=== PATIENT | male | born 1970 | race Hispanic/Latino ===

== ENCOUNTER 2018-07-03 18:16 | Emergency (ER) | payer OTHER ==
[2018-07-03 19:09] LABS: Absolute Lymphocytes (CBC) 1.9 K/uL (0.7-4.9); Absolute Monocytes 0.6 K/uL (0.1-1.3); Absolute Neutrophil 3.9 K/uL (1.8-8.0); Basophils % 0.9 % (0-1.3); Eosinophils % 6.1 % (0-4.4); Hematocrit 39.3 % (39.6-49.0); Lymphocytes % 27.9 % (15.3-44.8); MCV 82.5 fL (80-100); MPV 7.8 fL (7.6-11.3); Monocytes % 8.6 % (3.3-12.3); RBC Red Blood Cell Count 4.76 M/uL (4.33-5.43)
[2018-07-03 19:25] LABS: ALT/SGPT 32 U/L (12-78); AST/SGOT 30 U/L (15-37); Albumin 3.5 g/dL (3.4-5.0); Alkaline Phosphatase 111 U/L (45-117); BUN Blood Urea Nitrogen 15 mg/dL (7-18); Bicarbonate 26 mmol/L (21-32); Bilirubin Direct < 0.1 mg/dL (0-0.2); Bilirubin Total 0.4 mg/dL (0.2-1.0); Glucose Level 121 mg/dL (74-106); Magnesium 2.3 mg/dL (1.8-2.4); NT PRO-BNP 47 pg/mL (<125); Potassium 4.2 mmol/L (3.5-5.1); Protein, Total 6.9 g/dL (6.4-8.2); Sodium Level 138 mmol/L (136-145); Troponin (Emerg Dept Use Only) < 0.02 ng/mL (0.0-0.045)
[2018-07-03 19:26] LABS: Protime INR 4.47
--- NOTE | 2018-07-03 19:41 | RAD REPORT ---
EXAM DESCRIPTION: RAD - Chest Single View - 07/03/2018 7:32 pm CLINICAL HISTORY: CHEST PAIN Chest pain. COMPARISON: Chest Single View dated 07/19/2017; Chest Pa And Lat (2 Views) dated 03/08/2017; Chest Sin gle View dated 11/29/2015; Chest Pa And Lat (2 Views) dated 11/28/2015 FINDINGS: Portable technique limits examination quality. The lungs are grossly clear. The heart is normal in size. No displaced fractures.Evidence of previous mitral and aortic valve replacements with sternotomy wires noted. IMPRESSION: No acute intrathoracic process suspected.
--- NOTE | 2018-07-03 20:32 | RAD REPORT ---
EXAM DESCRIPTION: CT - Chest For Pe Angio - 07/03/2018 8:13 pm CLINICAL HISTORY: Chest pain. CHEST PAIN COMPARISON: Chest For Pe Angio dated 11/27/2015 TECHNIQUE: CT angiogram of the pulmonary arteries was performed with MIP. All CT scans are performed using dose optimization technique as appropriate and may include automated exposure control or mA/KV adjustment according to patient size. FINDINGS: No evidence of pulmonary thromboembolism. No acute aortic finding demonstrated. Small nodular density in the right middle lobe measures 9 mm and in the medial left lung base measure s 8 mm, diminished in size since 2016 comparative study but not completely resolved. Benign etiology is likely. No significant pericardial or pleural fluid. No concerning bony finding. IMPRESSION: No evidence of pulmonary thromboembolism. No acute lung findings.
--- NOTE | 2018-07-03 21:08 | ER ---
Nurse's Notes [facility] Name: Ryne Phillips Age: 48 yrs Sex: Male : 1970 Arrival Date: 07/03/2018 Time: 18:19 Bed 20 Private MD: Diagnosis: Chest pain, unspecified Presentation: 07/03 18:22 Presenting complaint: Patient states: right scapular pain and right-sided chest pain aa5 that began 2-3 days ago. Pt also reports SOB. 18:22 Transition of care: patient was not received from another setting of care. Onset of aa5 symptoms was June 2018. Risk Assessment: Do you want to hurt yourself or someone else? Patient reports no desire to harm self or others. Initial Sepsis Screen: Does the patient meet any 2 criteria? No. Patient's initial sepsis screen is negative. Does the patient have a suspected source of infection? No. Patient's initial sepsis screen is negative. Care prior to arrival: None. 18:22 Method Of Arrival: Ambulatory aa5 18:22 Acuity: ABBEY 2 aa5 Triage Assessment: 18:53 General: Appears in no apparent distress. uncomfortable, Behavior is calm, cooperative, hj appropriate for age. Pain: Complains of pain in chest Pain radiates to back. Cardiovascular: Capillary refill < 3 seconds Patient's skin is warm and dry. Historical: - Allergies: 18:22 No Known Allergies; aa5 - Home Meds: 18:22 Digitek Oral [Active]; Lisinopril Oral [Active]; metoprolol tartrate 25 mg Oral tab aa5 once daily [Active]; warfarin 5 mg Oral tab once daily [Active]; aspirin 81 mg Oral chew 1 tab once daily [Active]; - PMHx: 18:22 aortic valve replacement; mitral valve replacement; "heart problems"; aa5 - Immunization history:: Adult Immunizations unknown. - Social history:: Smoking status: Patient/guardian denies using tobacco. - Ebola Screening: : No symptoms or risks identified at this time. Screenin:52 Abuse screen: Denies threats or abuse. Denies injuries from another. Nutritional hj screening: No deficits noted. Tuberculosis screening: No symptoms or risk factors identified. Fall Risk None identified. Assessment: 18:53 Pain: Pain began 2-3 days ago. hj Vital Signs: 18:24 BP 119 / 70; Pulse 65; Resp 18 S; Temp 98.0(O); Pulse Ox 97% on R/A; Weight 72.57 kg aa5 (R); Height 5 ft. 4 in. (162.56 cm) (R); Pain 8/10; 22:00 BP 107 / 56; Pulse 60; Resp 16; Temp 98.1; Pulse Ox 98% on R/A; Pain 0/10; ak1 18:24 Body Mass Index 27.46 (72.57 kg, 162.56 cm) 5 ED Course: 18:19 Patient arrived in ED. mr 18:22 Arm band placed on Patient placed in an exam room, on a stretcher. aa5 18:26 Rylan Irvin PA is PHCP. [facility] 18:26 Irineo Hernández MD is Attending Physician. [facility] 18:30 Triage completed. aa 18:30 EKG completed in triage. Results shown to MD. aa 18:50 Initial lab(s) drawn, by me, sent to lab. Inserted saline lock: 20 gauge in right hj antecubital area, using aseptic technique. Blood collected. Patient maintains SpO2 saturation greater than 95% on room air. 18:52 Brant Patel, RN is Primary Nurse. hj 18:53 Patient has correct armband on for positive identification. Placed in gown. Bed in low hj position. Call light in reach. Side rails up X 1. Adult w/ patient. equipment monitor phototypesetting on. Pulse ox on. NIBP on. Sitter at bedside. 19:32 XRAY Chest (1 view) In Process Unspecified. EDMS 19:53 Notified Nurse Practitioner and/or Physician Lead Java Programmer of a critical lab result(s), ak1 53.5 PT, 4.47 INR. 20:09 Patient moved to UT via wheelchair. nj 20:12 CT completed. Patient tolerated procedure well. Patient moved back from UT. nj 20:13 CT Chest For PE Angio In Process Unspecified. EDMS 21:58 No provider procedures requiring assistance completed. IV discontinued, intact, ak1 bleeding controlled, No redness/swelling at site. Pressure dressing applied. Administered Medications: 21:57 Not Given (Patient Refused): morphine 4 mg IVP once ak1 21:57 Not Given (Patient Refused): Zofran 4 mg PO once ak1 21:57 Drug: Tylenol 500 mg Route: PO; ak1 21:58 Follow up: Response: No adverse reaction; Medication administered at discharge. ak1 Outcome: 21:08 Discharge ordered by . henry 21:59 Discharged to home ambulatory, with family. ak1 21:59 Condition: good 21:59 Discharge instructions given to patient, family, Instructed on discharge instructions, follow up and referral plans. no drinking with medication, no driving heavy equipment, medication usage, Demonstrated understanding of instructions, follow-up care, medications, Prescriptions given X 1. 22:01 Patient left the ED. ak1 Signatures: Dispatcher [employer] EDMS Rylan Irvin PA PA jmm Rivera, Mary mr WhiteMarizol griffin, RN RN aa5 Eileen Talbot RN RN ak1 Brant Patel, THEO RN Casper Larry
--- NOTE | 2018-07-03 21:09 | EDPHYS ---
Physician Documentation [facility] Name: Ryne Phillips Age: 48 yrs Sex: Male : 1970 Arrival Date: 07/03/2018 Time: 18:19 Bed 20 Private MD: ED Physician Irineo Hernández HPI: 07/03 18:40 This 48 yrs old Male presents to ER via Ambulatory with complaints of Chest jmm Pain. 18:40 The patient or guardian reports chest pain that is located primarily in the substernal jmm area. Onset: gradually, 4 day(s) ago. The pain does not radiate. Associated signs and symptoms: Pertinent positives: shortness of breath. The chest pain is described as aching. This is a 48 year old male with a history of aortic valve replacement, mitral valve replacement that presents to the ED with right sided chest pain beginning 4 days ago with radiation to the right shoulder and back and has now moved to the anterior chest wall. Patient also complains of sob. Patient denies history of CAD. . Historical: - Allergies: 18:22 No Known Allergies; aa5 - Home Meds: 18:22 Digitek Oral [Active]; Lisinopril Oral [Active]; metoprolol tartrate 25 mg Oral tab aa5 once daily [Active]; warfarin 5 mg Oral tab once daily [Active]; aspirin 81 mg Oral chew 1 tab once daily [Active]; - PMHx: 18:22 aortic valve replacement; mitral valve replacement; "heart problems"; aa5 - Immunization history:: Adult Immunizations unknown. - Social history:: Smoking status: Patient/guardian denies using tobacco. - Ebola Screening: : No symptoms or risks identified at this time. ROS: 18:40 Constitutional: Negative for fever, chills, and weight loss. jmm 18:40 Neck: Negative for injury, pain, and swelling. 18:40 Abdomen/GI: Negative for abdominal pain, nausea, vomiting, diarrhea, and constipation. 18:40 Cardiovascular: Positive for chest pain. 18:40 Respiratory: Positive for shortness of breath. 18:40 Back: Positive for pain with movement. 18:40 All other systems are negative. Exam: 18:40 Constitutional: This is a well developed, well nourished patient who is awake, alert, jmm and in no acute distress. Head/Face: atraumatic. Eyes: EOMI, no conjunctival erythema appreciated ENT: Moist Mucus Membranes Neck: Trachea midline, Supple Chest/axilla: Normal chest wall appearance and motion. 18:40 Abdomen/GI: Non distended, soft Back: Normal ROM Skin: General appearance color normal MS/ Extremity: Moves all extremities, no obvious deformities appreciated, no edema noted to the lower extremities Neuro: Awake and alert, normal gait Psych: Behavior is normal, Mood is normal, Patient is cooperative and pleasant 18:40 Cardiovascular: Rate: normal, Rhythm: regular, Heart sounds: murmur. Vital Signs: 18:24 BP 119 / 70; Pulse 65; Resp 18 S; Temp 98.0(O); Pulse Ox 97% on R/A; Weight 72.57 kg aa5 (R); Height 5 ft. 4 in. (162.56 cm) (R); Pain 8/10; 22:00 BP 107 / 56; Pulse 60; Resp 16; Temp 98.1; Pulse Ox 98% on R/A; Pain 0/10; ak1 18:24 Body Mass Index 27.46 (72.57 kg, 162.56 cm) aa5 MDM: 18:46 Patient medically screened. [facility] 20:44 Data reviewed: vital signs, nurses notes. [facility] 21:05 ED course: HEART SCORE = 2. CTA chest is negative. Patient is advised to discontinue [facility] coumadin for 24 hours and repeat inr. Patient will follow up with transport tank technician for reevaluation. Quill Picking Machine Operator was used. Patient and understood and agree with the plan of care. Return precautions were given. . 07/03 18:40 Order name: Basic Metabolic Panel [facility] 07/03 18:40 Order name: CBC with Diff [facility] 07/03 18:40 Order name: LFT's [facility] 07/03 18:40 Order name: Magnesium; Complete Time: 19:26 [facility] 07/03 18:40 Order name: NT PRO-BNP; Complete Time: 19:26 [facility] 07/03 18:40 Order name: PT-INR; Complete Time: 19:42 [facility] 07/03 18:40 Order name: Troponin (emerg Dept Use Only); Complete Time: 19:26 [facility] 07/03 18:40 Order name: XRAY Chest (1 view); Complete Time: 19:42 [facility] 07/03 18:42 Order name: Basic Metabolic Panel; Complete Time: 19:26 [facility] 07/03 18:42 Order name: CBC with Automated Diff; Complete Time: 19:19 [facility] 07/03 18:42 Order name: Liver (Hepatic) Function; Complete Time: 19:26 [facility] 07/03 18:46 Order name: D-Dimer; Complete Time: 19:26 [facility] 07/03 19:44 Order name: CT Chest For PE Angio; Complete Time: 20:33 [facility] 07/03 18:40 Order name: EKG; Complete Time: 18:42 [facility] 07/03 18:40 Order name: Cardiac monitoring; Complete Time: 18:55 [facility] 07/03 18:40 Order name: EKG - Nurse/Tech; Complete Time: 18:55 [facility] 07/03 18:40 Order name: IV Saline Lock; Complete Time: 18:55 [facility] 07/03 18:40 Order name: Labs collected and sent; Complete Time: 18:55 [facility] 18:40 Order name: O2 Per Protocol; Complete Time: 18:55 [facility] 07/03 18:40 Order name: O2 Sat Monitoring; Complete Time: 18:55 [facility] Administered Medications: 21:57 Not Given (Patient Refused): morphine 4 mg IVP once ak1 21:57 Not Given (Patient Refused): Zofran 4 mg PO once ak1 21:57 Drug: Tylenol 500 mg Route: PO; ak1 21:58 Follow up: Response: No adverse reaction; Medication administered at discharge. ak1 Disposition: 07/03/18 21:08 Discharged to Home. Impression: Chest pain, unspecified. - Condition is Stable. - Discharge Instructions: Nonspecific Chest Pain. - Prescriptions for Ultracet 37.5- 325 mg Oral Tablet - take 1 tablet by ORAL route every 6 hours - for up to 5 days; do not exceed 8 tablets per day.; 30 tablet. - Medication Reconciliation Form, Thank You Letter, Antibiotic Education, Prescription Opioid Use form. - Follow up: Private Physician; When: 1 - 2 days; Reason: Recheck today's complaints, Continuance of care, Re-evaluation by your physician. - Notes: PLEASE DO NOT TAKE COUMADIN FOR 24 HOURS THEN REPEAT INR LEVELS. PLEASE FOLLOW UP WITH YOUR DATA MIGRATION CONSULTANT IN 1 TO 2 DAYS. Signatures: Dispatcher [employer] [facility] Rylan Irvin PA PA jmm Calderon, Audri, RN RN aa5 Eileen Talbot, RN RN ak1 Corrections: (The following items were deleted from the chart) 22:01 21:08 07/03/2018 21:08 Discharged to Home. Impression: Chest pain, unspecified. ak1 Condition is Stable. Forms are Medication Reconciliation Form, Thank You Letter, Antibiotic Education, Prescription Opioid Use. Follow up: Private Physician; When: 1 - 2 days; Reason: Recheck today's complaints, Continuance of care, Re-evaluation by your physician. henry
[2018-07-03] MEDS ORDERED: ONDANSETRON 4 MG/2 ML VIAL ONE (21:56)
[2018-07-03] MEDS ORDERED: MORPHINE 4 MG/ML SYR ONE (21:57)
[2018-07-03] MEDS ORDERED: ACETAMINOPHEN 500 MG TAB ONE (22:04)
--- NOTE | 2018-07-04 07:06 | EKG ---
Test Date: 2018-07-03 Test Time: 18:37:51 Optical Mechanic Apprentice: YANE MEASUREMENT RESULTS: Intervals: Rate: 64 CA: 164 QRSD: 92 QT: 412 QTc: 425 [place]: P: 71 CA: 164 QRS: 41 T: 87 INTERPRETIVE STATEMENTS: Normal sinus rhythm T wave abnormality, consider lateral ischemia Abnormal ECG Compared to ECG 07/19/2017 11:49:04 No significant changes Electronically Signed On 07-04-18 07:06:08 SLITTER AND REWINDER MACHINE OPERATOR by Farshad Collazo
== END 2018-07-03 22:01 | disposition home or self-care (01) ==
LOC: ER 18:16
DX: R07.9 Chest pain, unspecified (principal); Z79.01 Long term (current) use of anticoagulants; Z79.82 Long term (current) use of aspirin; Z95.2 Presence of prosthetic heart valve
CPT/HCPCS: 36415; 71045; 71275; 80048; 80076; 83735; 83880; 84484; 85025; 85379; 85610; 93005; 99285; J2405; Q9967

== ENCOUNTER 2021-08-10 18:11 | Emergency (ER) | payer OTHER ==
--- OUTSIDE RECORDS SUMMARY | 2021-08-10 18:14 | XMS REPORT | Continuity of Care Document ---
:1970 Author Organization [facility] t Address [facility] [place] [address] Care Team Providers Name Role Phone JAYENOCH Attending Clinician Unavailable Yuli HARRY Attending Clinician Unavailable Shira Aaron Attending Clinician Unavailable MARJAN K.H. Attending Clinician Unavailable Marjan APONTE, K.H. Attending Clinician Doctor Unassigned, Name Attending Clinician Unavailable Shira Aaron Admitting Clinician Unavailable Physician, Primary or Family Admitting Clinician Unavailabl e Payers Payer Name Policy Type Policy Number Effective Date Expiration Date [facility] [id number] 2016 CHOICE 00:00:00 Problems This patient has no known problems. Allergies, Adverse Reactions, Alerts Allergy Allergy Status Severity Reaction(s) Onset Inactive Treating Comm ents Source Name Type Date Date Clinician No Known DA Active U 2014-08 [facility]: [address] No Known DA Active U 2014-08 [facility] 09-01 00:00: [address] NO KNOWN Drug Active [facility] ALLERGIE [facility] Medications Ordered Filled Start Stop Current Ordering Indication Dosage Frequency Signature Comments Components Source Medication Medication Date Date Medication? Clinician (SIG) Name Name Coumadin Coumadin Yes Shaye [address] [facility] Lisinopril Lisinopril Yes Shaye [address] [facility] Metoprolol Metoprolol Yes Shaye [address] [facility] Tartrate Tartrate [facility] with [facility] Digoxin Digoxin Yes Shaye [address] [facility] Procedures This patient has no known procedures. Encounters Start End Encounter Admission Attending Care Care Encounter Source Date/Time Date/Time Type Type Clinicians Facility Department ID 2021-04-27 2021-04-27 [id number] 2021-04-20 2021-04-20 [facility] [id number] [facility] 2021-01-06 2021-01-[address] [facility] [id number] [facility] 08:00:00 08:00:00 [facility] 2020-12-20 2020-12-20 [facility] [id number] [facility] 16:10:00 16:10:00 [facility] 2020-11-22 2020-11-22 [facility] [id number] [facility] 17:50:00 17:50:00 [facility] 2020-11-17 2020-11-17 [facility] [id number] 2020-10-26 2020-10-26 [facility] [id number] [facility] 2020-09-01 2020-09-01 Outpatient Agnieszka, MELVAWU SURG [id number] [facility] 15:00:00 15:00:[id number] [facility] 2020-08-302020-08-30 Outpatient Pepper, HCAWU SURG [id number] [facility] 15:00:00 15:00:[id number] [facility] 2020-07-25 2020-07-25 Outpatient Pepper, HCAWU NUCM [id number] [facility] 09:30:00 09:30:[id number] [facility] 2020-02-11 2020-02-[address] [facility] [id number] [facility] 15:30:00 15:30:00 SENDDOLORES patino [facility] 2019-11-05 2019-11-05 Outpatient Pepper, HCAWU SUGL [id number] [facility] 08:00:00 08:00:[id number] [facility] 2019-11-03 2019-11-03 Outpatient Pepper, HCAWU HCAWU [id number] [facility] 14:15:00 14:15:[id number] [facility] 2019-10-30 2019-10-30 Outpatient Agnieszka, HCAWU SUGL [id number] [facility] 09:00:00 09:00:[id number] [facility] 2019-10-07 2019-10-07 [facility] [id number] 16:20:00 16:20:00 [facility] 2019-10-06 2019-10-06 Telephone Marjan [facility] [id number] 00:00:00 00:00:00 Senddolores Gonzalez [id number] [place] [id number] Johnny [id number] [address] 2019-10-01 2019-10-01 Orders Doctor JUAN [id number] 00:00:00 00:00:00 Only Unassigned, REGLA [id number] [place] [facility] [id number] 2019-09-03 2019-09-03 [facility] [id number] 16:00:00 16:00:[address] [facility] Results Test Description Test Time Test Comments Results Result Comments Source BASIC METABOLIC PANEL 2020-08-30 07:47:00 Test Item Value Reference Range Interpretation Comme nts SODIUM (test code = NA) 138 MMOL/L 137-145 N POTASSIUM (test code = K) 4.3 MMOL/L 3.5-5.1 N CHLORIDE (test code = CL) 102 MMOL/L 98-107 N CARBON DIOXIDE (test code = CO2) 29 MMOL/L 22-30 N GLUCOSE (test code = GLU) 99 MG/DL 74-106 N BLOOD UREA NITROGEN (test code = 16 MG/DL 9-20 N BUN) GLOMERULAR FILTRATION RATE (test > 60 Reporting units: ml/min/1.73 code = GFR) m2 (Modified M DRD Formula)Referen ce Range: > or = 60 ml/min/1.7 3 m2 CREATININE (test code = CREAT) 0.70 MG/DL 0.66-1.25 N CALCIUM (test code = CA) 8.5 MG/DL 8.4-10.2 N [id number] 07:47:00 Test Item Value Reference Range Interpretation Comments MAGNESIUM (test code = MAG) 2.0 MG/DL 1.6-2.3 N BASIC METABOLIC [id number] 07:46:00 Test Item Value Reference Range Interpretation Comments SODIUM (test code = 138 MMOL/L 137-145 N NA) POTASSIUM (test code = 4.3 MMOL/L 3.5-5.1 N K) CHLORIDE (test code = 102 MMOL/L 98-107 N CL) CARBON DIOXIDE (test 29 MMOL/L 22-30 N code = CO2) GLUCOSE (test code = MG/DL 74-106 GLU) BLOOD UREA NITROGEN 16 MG/DL 9-20 N (test code = BUN) GLOMERULAR FILTRATION > 60 Report ing units: RATE (test code = GFR) ml/mi n/1.73 m2 (Modified MDRD Formula)Referen ce Range: > or = 6 0 ml/min/1.73 m2 CREATININE (test code 0.70 MG/DL 0.66-1.25 N = CREAT) CALCIUM (test code = MG/DL 8.7-9.7 CA) [id number] 07:46:00 Test Item Value Reference Range Interpretation Comments MAGNESIUM (test code = MAG) MG/DL 1.6-2.3 BASIC METABOLIC [id number] 07:43:00 Test Item Value Reference Range Interpretation Comments SODIUM (test code = NA) 138 MMOL/L 137-145 N POTASSIUM (test code = K) 4.3 MMOL/L 3.5-5.1 N CHLORIDE (test code = CL) 102 MMOL/L 98-107 N CARBON DIOXIDE (test code = CO2) MMOL/L 22-30 GLUCOSE (test code = GLU) MG/DL 74-106 BLOOD UREA NITROGEN (test code = MG/DL 9-20 BUN) GLOMERULAR FILTRATION RATE (test code = GFR) CREATININE (test code = CREAT) MG/DL 0.66-1.25 CALCIUM (test code = CA) MG/DL 8.7-9.7 [id number] 07:43:00 Test Item Value Reference Range Interpretation Comments MAGNESIUM (test code = MAG) MG/DL 1.6-2.3 PROTHROMBIN [id number] 07:09:00 Test Item Value Reference Range Interpretation Comments PROTHROMBIN TIME 22.1 SECONDS 9.4-12.5 H PATIENT (test code = PTP) INTERNATIONAL NORMAL 2.0 The INR is to be RATIO (test code = used only for INR) monitoring oral anticoagulantth erap y. INDICATION I NR VALUE ---- ---- ---- -------1. Prophylaxis, de ep venous thrombos is, including hig h risk surgery. 2.0 - 3.0 2. Prophylaxis, de ep venous thrombos is, hip surgery, treatment for d eep venous thrombosis or pulmonary prevention of systemic emboli sm in patients wit h valvular heart disease, atrial fibrillation, tissue heart va lve, or acute myocar dial infarction. 2.0 - 3 .0 3. Mechanical prosthesis hear t valves, recurrent syste van embolism. 3.0 - 4.5 PTT [id number] 07:09:00 Test Item Value Reference Range Interpretation Comments PTT ACTIVATED (test code = APTT) 44.2 SECONDS 25.1-36.5 H CBC W/AUTO [id number] 06:56:00 Test Item Value Reference Range Interpretation Comments WHITE BLOOD CELL (test code = 6.8 K/MM3 3.8-9.8 N WBC) RED BLOOD CELL (test code = 5.43 M/MM3 3.95-5.67 N RBC) HEMOGLOBIN (test code = HGB) 15.1 G/DL 12.4-16.7 N HEMATOCRIT (test code = HCT) 46.5 % 35.9-49.5 N MEAN CELL VOLUME (test code = 86 fL 81.7-96.1 N MCV) MEAN CELL HGB (test code = MCH) 27.8 pg 27.6-33.2 N MEAN CELL HGB CONCETRATION 32.5 % 32.9-35.5 L (test code = MCHC) RED CELL DISTRIBUTION WIDTH 13.7 % 12.1-15.2 N (test code = RDW) PLATELET COUNT (test code = 306 K/MM3 129-368 N PLT) MEAN PLATELET VOLUME (test code 9.7 fl 7.4-10.4 N = MPV) NEUTROPHIL % (test code = NT%) 57.2 % 43-75 N IMMATURE GRANULOCYTE % (test 0.4 % 0.0-2.0 N code = IG%) LYMPHOCYTE % (test code = LY%) 28.3 % 14-44 N MONOCYTE % (test code = MO%) 8.9 % 4-13 N EOSINOPHIL % (test code = EO%) 4.3 % 0-6 N BASOPHIL % (test code = BA%) 0.9 % 0-2 N NUCLEATED RBC % (test code = 0.0 % 0-1.0 N NRBC%) NEUTROPHIL # (test code = NT#) 3.86 K/mm3 2.0-7.6 N IMMATURE GRANULOCYTE # (test 0.03 x10 3/uL 0-0.03 N code = IG#) LYMPHOCYTE # (test code = LY#) 1.91 K/mm3 1.0-3.8 N MONOCYTE # (test code = MO#) 0.60 K/mm3 0.1-0.8 N EOSINOPHIL # (test code = EO#) 0.29 K/mm3 0.0-0.2 H BASOPHIL # (test code = BA#) 0.06 K/mm3 0.0-0.2 N NUCLEATED RBC # (test code = 0.00 K/mm3 0.0-0.1 N NRBC#) COVID 19 Asymptomatic IH [id number] 15:10:00 Test Item Value Reference Range Interpretation Comments COVID 19 NEGATIVE Negative "Negative resul ts from Asymptomatic IH AG patients with symptom (test code = onset beyondfiv e days, COVNONPUIAG) should be kathy brit as presumptive, andconfirmation with a molecular assay , if necessary forpa tient management may be performed. Nega tive results do notr ule out COVID-19 and sh ould not be used as the sole basisfor treatm ent or patient managem ent decisions, includinginfect ion control decisio ns. Negative result s should beconsidered in the context of a pa tients recent exposure s,history, and the presenc e of clinical signs and symptomsconsist ent with COVID-19.This t est detects both vi able andnon-viable S ARS-CoV and SARS CoV-2. Test performance dep endson the amount of virus (antigen) in the sample." - NM MYOCRD SPECT R/S [id number] 07:39:00 [facility] 1970 Sex: M Patient Name: Cecy PATTON Unit No: [id number] EXAMS: CPT CODE: [id number] NM MYOCRD SPECT R/S MULT [id number] INDICATION: Precordial chest pain. The patient underwent myocardial perfusion imaging utilizing IV injection of 10.6 mCi Tc99M Cardiolite at rest and IV injection of 30.8 mCi [id number] Cardiolite at peak stress. SPECT imaging was obtained at rest and stress. Gated SPECT imaging was obtained at stress. Jasvir treadmill protocol was utilized for stress. FINDINGS: There is no significant perfusion defect. CONCLUSIONS: 1. NORMAL EXERCISE TECHNETIUM 99 CARDIOLITE SHOWING NORMAL PERFUSION. 2. GATED PERFUSION IMAGING SHOWS NORMAL LEFT VENTRICULAR SIZE AND SYSTOLIC FUNCTION WITH NORMAL WALL MOTION. END-DIASTOLIC VOLUME IS 89 mL, END-SYSTOLIC VOLUME IS 27 mL, AND THE EJECTION FRACTION IS 70 %. at 0739 Reported and signed by: Merritt Aaron M.D. CC: Merritt Aaron Technologist: Brant BONNER; Ariel Juarez, RT(N); ... Transcrpt Date/Tm/Trnsp: 07/29/2020 (0739) JúniorP Orig Print D/T: S: 07/29/2020 (0743) [facility] NAME: ALAN AGUIRRECecy [id number] PHYS: [place] [address] : 1970 AGE: 50 SEX: M LOC: Z.NUC PHONE #: [phone] EXAM DATE: 07/25/2020 STATUS: DEP CLI FAX #: [phone] RADIOLOGY NO: PAGE 1 Signed Report
[2021-08-10] MEDS ORDERED: OXYMETAZOLINE HCL 0.05% 15ML NAS ONE (19:22)
[2021-08-10 20:07] LABS: Absolute Lymphocytes (CBC) 2.1 K/uL (0.7-4.9); Basophils % 1.4 % (0-1.3); Hematocrit 41.3 % (39.6-49.0); Lymphocytes % 26.8 % (15.3-44.8); MPV 7.8 fL (7.6-11.3); RBC Red Blood Cell Count 4.95 M/uL (4.33-5.43)
[2021-08-10 20:13] LABS: Protime INR 3.94
[2021-08-10 20:37] LABS: BUN Blood Urea Nitrogen 16 mg/dL (7-18); Bicarbonate 23 mmol/L (21-32); Glucose Level 110 mg/dL (74-106); Potassium 4.2 mmol/L (3.5-5.1); Sodium Level 139 mmol/L (136-145)
--- NOTE | 2021-08-10 21:50 | EDPHYS ---
Physician Documentation [facility] Name: Ryne Phillips Age: 51 yrs Sex: Male : 1970 Arrival Date: 08/10/2021 Time: 18:27 Bed 15 Private MD: ED Physician Irineo Hernández HPI: 08/10 19:50 This 51 yrs old Male presents to ER via Ambulatory with complaints of Nose rn Bleed. 19:50 The patient presents with a nose bleed, occurred from an unknown cause. Onset: The rn symptoms/episode began/occurred 2 hour(s) ago. Modifying factors: The symptoms are alleviated by pressure, the symptoms are aggravated by blowing nose. Associated signs and symptoms: Loss of consciousness: the patient experienced no loss of consciousness, Pertinent positives: bleeding, Pertinent negatives: chest pain, fever, shortness of breath. Severity of symptoms: At their worst the symptoms were mild in the emergency department the symptoms are unchanged. The patient has experienced a previous episode. The patient has been recently seen by a physician:. Patient reports was at work, denies trauma, began bleeding out of right nare. Denies shortness of breath. Helps with pressure but does not stop. States takes warfarin for 2 valve replacements in the past and was told recently that his level was low and to increase his warfarin. No other acute problems.. Historical: - Allergies: 19:06 No Known Drug Allergies; eo2 - Home Meds: 19:06 warfarin 5 mg Oral tab once daily [Active]; metoprolol tartrate 25 mg Oral tab once eo2 daily [Active]; lisinopril 5 mg Oral tab 1 tab once daily [Active]; - PMHx: 19:06 "heart problems"; aortic valve replacement; mitral valve replacement; eo2 - Immunization history:: Adult Immunizations up to date, Client reports receiving the 2nd dose of the Covid vaccine. - Social history:: Smoking status: Patient denies any tobacco usage or history of. - Family history:: not pertinent. - Hospitalizations: : No recent hospitalization is reported. ROS: 19:50 Constitutional: Negative for fever, chills, and weight loss, ENT: Positive for rn epistaxis Cardiovascular: Negative for chest pain, palpitations, and edema, Respiratory: Negative for shortness of breath, cough, wheezing, and pleuritic chest pain, Abdomen/GI: Negative for abdominal pain, nausea, vomiting, diarrhea, and constipation, Neuro: Negative for headache, weakness, numbness, tingling, and seizure. Exam: 19:50 Constitutional: This is a well developed, well nourished patient who is awake, alert, rn and in no acute distress. Head/Face: Normocephalic, atraumatic. ENT: Slow bleeding from right nare Cardiovascular: Regular rate and rhythm. No pulse deficits. Respiratory: No increased work of breathing, no retractions or nasal flaring. Skin: Warm, dry with normal turgor. Normal color with no rashes, no lesions, and no evidence of cellulitis. Neuro: Awake and alert, GCS 15 Vital Signs: 19:01 BP 133 / 79; Pulse 69; Resp 15; Pulse Ox 98% ; Weight 77.11 kg; Height 5 ft. 3 in. eo2 (160.02 cm); Pain 5/10; 20:28 BP 117 / 74; Pulse 63; Resp 20; Pulse Ox 99% on R/A; mk 21:40 BP 116 / 85; Pulse 62; Resp 18; Pulse Ox 98% on R/A; mk 19:01 Body Mass Index 30.11 (77.11 kg, 160.02 cm) eo2 Delmar Coma Score: 20:28 Eye Response: spontaneous(4). Verbal Response: oriented(5). Motor Response: obeys mk commands(6). Total: 15. MDM: 19:05 Patient medically screened. rn 20:55 ED course: INR 3.94. Bleeding initially stopped after Afrin and pressure but patient rn started to drink Sprite and bleeding started again. Reapplied pressure and bleeding is stopped, does not feel like it is tracking backwards and patient is sitting upright sleeping comfortably. It will be better for patient if we can do this without vitamin K administration, told him if bleeds again will have to put a Rhino Rocket. We will continue to observe.. 21:48 Differential diagnosis: spontaneous epistaxis. Data reviewed: vital signs, nurses rn notes, lab test result(s), and as a result, I will discharge patient. Counseling: I had a detailed discussion with the patient and/or guardian regarding: the historical points, exam findings, and any diagnostic results supporting the discharge/admit diagnosis, lab results, the need for outpatient follow up, to return to the emergency department if symptoms worsen or persist or if there are any questions or concerns that arise at home. Response to treatment: the patient's symptoms have resolved after treatment, the patient's condition has returned to base line, the patient is now symptom free, and as a result, I will discharge patient. ED course: Patient observed here has not had any bleeding for about an hour and a half. Has not required further intervention. Will not give vitamin K since bleeding has stopped and stable vitals. H\\T\\H were normal. Recommend that he skips tomorrow's warfarin dose and then resumes at his old 5 mg a day which she has been balanced and within range for years. It turns out that his PCP had increased his warfarin based on a low INR but patient states was in [place] and had not taken it for days prior to blood draw.. 08/10 19:30 Order name: CBC with Diff; Complete Time: 20:33 rn 08/10 19:30 Order name: Basic Metabolic Panel; Complete Time: 20:55 rn 08/10 19:30 Order name: Protime (+inr); Complete Time: 20:33 rn 08/10 19:30 Order name: Ptt, Activated; Complete Time: 20:33 rn 08/10 19:30 Order name: IV Start; Complete Time: 19:57 rn Administered Medications: 19:25 Drug: Oxymetazoline Drops (0.05 %) 1 sprays {Note: given by Edgar HINOJOSA} Route: mk Intranasal; Site: both nares; 22:22 Follow up: Response: No adverse reaction; Marked relief of symptoms 20:38 CANCELLED (NO longer bleedingg): Vitamin K1 (phytonadione) 10 mg IM once rn Disposition Summary: 08/10/21 21:50 Discharge Ordered Location: Home rn Problem: new rn Symptoms: are resolved rn Condition: Stable rn Diagnosis - Epistaxis rn - Supratherapeutic INR rn Followup: rn - With: Private Physician - When: As needed - Reason: Recheck today's complaints, Re-evaluation by your physician Discharge Instructions: - Discharge Summary Sheet rn - Nosebleed, Adult rn - Warfarin Coagulopathy rn - Warfarin Information rn - Vitamin K Foods and Warfarin rn Forms: - Medication Reconciliation Form rn - Thank You Letter rn - 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 josie galindo
--- NOTE | 2021-08-10 21:50 | ER ---
Nurse's Notes [facility] Name: Ryne Phillips Age: 51 yrs Sex: Male : 1970 Arrival Date: 08/10/2021 Time: 18:27 Bed 15 Private MD: Diagnosis: Epistaxis;Supratherapeutic INR Presentation: 08/10 19:01 Chief complaint: Spouse and/or significant other states: nose bleed onset 1 hour [employer], eo2 on coumadin for heart valves, denies fall/injury. Coronavirus screen: Vaccine status: Patient reports receiving the 2nd dose of the covid vaccine. Ebola Screen: No symptoms or risks identified at this time. Initial Sepsis Screen: Does the patient meet any 2 criteria? No. Patient's initial sepsis screen is negative. Does the patient have a suspected source of infection? No. Patient's initial sepsis screen is negative. Risk Assessment: Do you want to hurt yourself or someone else? Patient reports no desire to harm self or others. Onset of symptoms was August 10, 2021. 19:01 Method Of Arrival: Ambulatory eo2 19:01 Acuity: ABBEY 3 eo2 Triage Assessment: 19:06 General: Appears uncomfortable, Behavior is calm, cooperative. eo2 Historical: - Allergies: 19:06 No Known Drug Allergies; eo2 - Home Meds: 19:06 warfarin 5 mg Oral tab once daily [Active]; metoprolol tartrate 25 mg Oral tab once eo2 daily [Active]; lisinopril 5 mg Oral tab 1 tab once daily [Active]; - PMHx: 19:06 "heart problems"; aortic valve replacement; mitral valve replacement; eo2 - Immunization history:: Adult Immunizations up to date, Client reports receiving the 2nd dose of the Covid vaccine. - Social history:: Smoking status: Patient denies any tobacco usage or history of. - Family history:: not pertinent. - Hospitalizations: : No recent hospitalization is reported. Screenin:23 Abuse screen: Denies threats or abuse. Nutritional screening: No deficits noted. mk Tuberculosis screening: No symptoms or risk factors identified. Fall Risk None identified. Assessment: 19:20 General: Appears in no apparent distress. Behavior is calm, cooperative. Pain: Denies mk pain. Neuro: Level of Consciousness is awake, alert, obeys commands, Oriented to person, place, time, situation, Backer Up are equal bilaterally Moves all extremities. Gait is steady, Speech is normal, Facial symmetry appears normal, Pupils are PERRLA. Cardiovascular: Heart tones S1 S2 Capillary refill < 3 seconds fingers toes JVD is absent Patient's skin is warm and dry. Pulses are 2+ in right radial artery, right dorsalis pedis artery, left radial artery and left dorsalis pedis artery Rhythm is regular. Respiratory: Airway is patent Respiratory effort is even, unlabored, Respiratory pattern is regular, symmetrical, Breath sounds are clear. : No signs and/or symptoms were reported regarding the genitourinary system. EENT: Nares with bleeding noted on right on left. Derm: Skin is intact. Musculoskeletal: Range of motion: intact in all extremities. 20:20 Reassessment: Patient and/or family updated on plan of care and expected duration. Pain mk level reassessed. Patient is alert, oriented x 3, equal unlabored respirations, skin warm/dry/pink. bleeding stopped s/p meds and nose pinching. 21:34 Reassessment: No changes from previously documented assessment. Patient and/or family mk updated on plan of care and expected duration. Pain level reassessed. Patient is alert, oriented x 3, equal unlabored respirations, skin warm/dry/pink. 22:22 Reassessment: No changes from previously documented assessment. Patient and/or family mk updated on plan of care and expected duration. Pain level reassessed. Patient is alert, oriented x 3, equal unlabored respirations, skin warm/dry/pink. Patient states feeling better. Patient states symptoms have improved. Vital Signs: 19:01 BP 133 / 79; Pulse 69; Resp 15; Pulse Ox 98% ; Weight 77.11 kg; Height 5 ft. 3 in. eo2 (160.02 cm); Pain 5/10; 20:28 BP 117 / 74; Pulse 63; Resp 20; Pulse Ox 99% on R/A; mk 21:40 BP 116 / 85; Pulse 62; Resp 18; Pulse Ox 98% on R/A; mk 19:01 Body Mass Index 30.11 (77.11 kg, 160.02 cm) eo2 Halsey Coma Score: 20:28 Eye Response: spontaneous(4). Verbal Response: oriented(5). Motor Response: obeys mk commands(6). Total: 15. ED Course: 18:27 Patient arrived in ED. ds1 19:01 Arielle Bermudez, RN is Primary Nurse. eo2 19:05 Irineo Hernández MD is Attending Physician. rn 19:06 Triage completed. eo2 19:11 Report given to Samira VENEGAS. eo2 19:20 Patient has correct armband on for positive identification. Allergy band placed. Placed mk in gown. Bed in low position. Call light in reach. Side rails up X 1. Pulse ox on. NIBP on. 19:40 Inserted saline lock: 18 gauge in right antecubital area, using aseptic technique. mk 19:43 Samira Rosas, RN is Primary Nurse. mk 19:57 CBC with Diff Sent. mk 19:57 Basic Metabolic Panel Sent. mk 19:57 Ptt, Activated Sent. mk 19:57 Protime (+inr) Sent. mk 22:23 Arm band placed on. mk 22:23 medication removal from pyxis. IV discontinued, intact, bleeding controlled, No mk redness/swelling at site. Pressure dressing applied. Administered Medications: 19:25 Drug: Oxymetazoline Drops (0.05 %) 1 sprays {Note: given by Edgar APONTE.} Route: mk Intranasal; Site: both nares; 22:22 Follow up: Response: No adverse reaction; Marked relief of symptoms mk 20:38 CANCELLED (NO longer bleedingg): Vitamin K1 (phytonadione) 10 mg IM once rn Outcome: 21:50 Discharge ordered by . rn 22:23 Discharged to home with family. mk 22:23 Condition: stable 22:23 Discharge instructions given to patient, family. 22:24 Patient left the ED. mk Signatures: Anel Burch ds1 Irineo Hernández MD MD rn Owoade, Eunice, RN RN eo2 Samira Rosas RN RN mk
[2021-08-10 22:31] VITALS: BP 116/85; O2SAT 98
== END 2021-08-10 22:24 | disposition home or self-care (01) ==
LOC: ER 18:11
DX: R04.0 Epistaxis (principal); R79.1 Abnormal coagulation profile; Z79.01 Long term (current) use of anticoagulants; Z95.4 Presence of other heart-valve replacement
CPT/HCPCS: 36415; 80048; 85025; 85610; 85730; 99284

== ENCOUNTER → 2023-08-18 | Emergency (ER) | payer OTHER ==
[~2023-08-18] MED LIST: BENZONATATE 100 MG CAP PO ONE
--- OUTSIDE RECORDS SUMMARY | 2023-08-18 02:30 | XMS REPORT | Continuity of Care Document ---
Author Name Unknown Address [address] [facility] [address] [place] [address] [facility] thconnect Address [address] [facility] [address] [place] [address] Care Team Providers Care Tower Technician Name Role Phone John Gilda BOWMAN Primary Care Physician [phone] [place] Attending Clinician Unavailable Shaye Perdomo Attending Clinician Unavailable Doctor Unassigned, [place] Attending Clinician U WILL Sheffield Attending Clinician Unavail able DEVIN HARRY Attending Clinician Unavailable ELYSE PHILLIP K.HHelder Attending Clinician Unavailjazlyn Phillip MD, Elyse K.H. Attending Clinician [phone] Payers Payer Name Policy Type Policy Number Effective Date Expirati on Date Source [place] [id number] [facility] ([facility]) C1 [id number] 2019 00:00:00 [facility] ([facility]) C1 [id number] 2019 00:00:00 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 [facility] current use of anticoagul ant Disease Active 09-08 00:00: 00 [facility] S/P mitral valve replacemen t with metallic valve S/P mitral valve replacemen t with metallic valve Disease Active 09-08 00:00: 00 [facility] S/P aortic valve replacemen t with metallic valve S/P aortic valve replacemen t with metallic valve Disease Active 09-08 00:00: 00 [facility] History of rheumatic fever History of rheumatic fever Disease Active 09-08 00:00: 00 [facility] ARRIAGA (dyspnea on exertion) ARRIAGA (dyspnea on exertion) Disease Active 09-08 00:00: 00 [facility] Atypical chest pain Atypical chest pain Disease Active 09-08 00:00: 00 [facility] [id number] 100 H/O aortic valve replacemen t Problem [facility] [id number] Encounter for general adult medical examinatio n with abnormal findings Problem [facility] [id number] Paresthesi a of right leg Problem [facility] [id number] Arm paresthesi a, right Problem [facility] [id number] 109 H/O mitral valve replacemen t Problem [facility] [id number] CVD (cardiovas cular disease) Problem [facility] [id number] Lipid metabolism abnormalit y Problem [facility] [id number] Cough Problem [facility] [id number] Eye muscle twitches Problem [facility] Allergies, Adverse Reactions, Alerts Allergy Name Allergy Type Status Severity Reaction(s) Onset Date Inactive Date Treating Clinician Comments Source NO KNOWN ALLERGIE S Drug Class Active [facility] Social History Social Habit Start Date Stop Date Quantity Comments Source History of Tobacco Use [facility] Sex Assigned At [facility] Alcohol intake 2019-01-09 00:00:00 2019-01-09 00:00:00 .14 /d [facility] Smoking Status Start Date Stop Date Source Former Smoker 2022-01-26 00:00:00 2022-01-26 00:00:00 [facility] Medications Ordered Medication Name Filled Medication Name Start Date Stop Date Current Medication? Ordering Clinician Indication Dosage Frequency Signature (SIG) Comments Components Source warfarin 5 mg tablet 08-31 00:00: 00 Yes [id number] TAKE ONE TABLET BY MOUTH EVERY EVENING [facility] LISINOPRIL 5 mg tablet 2018-08 00:00: 00 Yes [id number] TAKE ONE TABLET BY MOUTH DAILY [facility] DIGOXIN 125 mcg (0.125 mg) tablet 2018-08 00:00: 00 Yes [id number] TAKE ONE TABLET BY MOUTH DAILY [facility] METOPROLOL TARTRATE 25 mg tablet 2018-08 00:00: 00 Yes [id number] TAKE 1/2 TABLET BY MOUTH DAILY [facility] DIGOXIN 125 mcg (0.125 mg) tablet 2018-08 00:00: 00 Yes [id number] TAKE ONE TABLET BY MOUTH DAILY [facility] WARFARIN 5 mg tablet 02-11 00:00: 00 Yes TAKE ONE TABLET BY MOUTH EVERY EVENING [facility] warfarin 5 mg tablet 10-13 00:00: 00 Yes 5mg Take 1 tablet by mouth every evening. 5 mg 4 days/week, 7.5 mg 3 days/week [facility] aspirin 81 mg chewable tablet 04-15 16:45: 22 Yes 81mg Take 81 mg by mouth daily. [facility] fluticasone 50 mcg/actuati on nasal spray 04-11 00:00: 00 Yes [id number] 1{spray } Use 1 [place] in each nostril 2 (two) times daily. [facility] benzonatate (TESSALON PERLES) 100 mg capsule 04-11 00:00: 00 Yes [id number] 100mg Take 1 capsule by mouth 3 (three) times daily. [facility] lisinopril 5 mg tablet 12-05 00:00: 00 Yes [id number] 5mg Take 1 tablet by mouth daily. [facility] Aspirin Adult Low Dose 81 MG Aspirin Adult Low Dose 81 MG No 1{table t} QD Aspirin Adult Low Dose 81 MG Metoprolol Tartrate 25 MG Metoprolol Tartrate 25 MG No 1{table t_with_ food} QD Metoprolol Tartrate 25 MG Coumadin 5 MG Coumadin 5 MG No 1{table t} QD Coumadin 5 MG Aspirin Adult Low Dose 81 MG Aspirin Adult Low Dose 81 MG No 1{table t} QD Aspirin Adult Low Dose 81 MG Metoprolol Tartrate 25 MG Metoprolol Tartrate 25 MG No 1{table t_with_ food} QD Metoprolol Tartrate 25 MG Coumadin 5 MG Coumadin 5 MG No 1{table t} QD Coumadin 5 MG Lisinopril 5 MG Lisinopril 5 MG No 1{table t} QD Lisinopril 5 MG Metoprolol Tartrate 25 MG Metoprolol Tartrate 25 MG No 1{table t_with_ food} QD Metoprolol Tartrate 25 MG Aspirin Adult Low Dose 81 MG Aspirin Adult Low Dose 81 MG No 1{table t} QD Aspirin Adult Low Dose 81 MG Coumadin 5 MG Coumadin 5 MG No 1{table t} QD Coumadin 5 MG Lisinopril 5 MG Lisinopril 5 MG No 1{table t} QD Lisinopril 5 MG Metoprolol Tartrate 25 MG Metoprolol Tartrate 25 MG No 1{table t_with_ food} QD Metoprolol Tartrate 25 MG Aspirin Adult Low Dose 81 MG Aspirin Adult Low Dose 81 MG No 1{table t} QD Aspirin Adult Low Dose 81 MG Coumadin 5 MG Coumadin 5 MG No 1{table t} QD Coumadin 5 MG Metoprolol Tartrate 25 MG Metoprolol Tartrate 25 MG No 1{table t_with_ food} QD Metoprolol Tartrate 25 MG Aspirin Adult Low Dose 81 MG Aspirin Adult Low Dose 81 MG No 1{table t} QD Aspirin Adult Low Dose 81 MG Lisinopril 5 MG Lisinopril 5 MG No 1{table t} QD Lisinopril 5 MG Coumadin 5 MG Coumadin 5 MG No 1{table t} QD Coumadin 5 MG Coumadin 5 MG Coumadin 5 MG No 1{table t} QD Coumadin 5 MG Aspirin Adult Low Dose 81 MG Aspirin Adult Low Dose 81 MG No 1{table t} QD Aspirin Adult Low Dose 81 MG Metoprolol Tartrate 25 MG Metoprolol Tartrate 25 MG No 1{table t_with_ food} QD Metoprolol Tartrate 25 MG Aspirin Adult Low Dose 81 MG Aspirin Adult Low Dose 81 MG No 1{table t} QD Aspirin Adult Low Dose 81 MG Coumadin 5 MG Coumadin 5 MG No 1{table t} QD Coumadin 5 MG Metoprolol Tartrate 25 MG Metoprolol Tartrate 25 MG No 1{table t_with_ food} QD Metoprolol Tartrate 25 MG Aspirin Adult Low Dose 81 MG Aspirin Adult Low Dose 81 MG No 1{table t} QD Aspirin Adult Low Dose 81 MG Coumadin 5 MG Coumadin 5 MG No 1{table t} QD Coumadin 5 MG Metoprolol Tartrate 25 MG Metoprolol Tartrate 25 MG No 1{table t_with_ food} QD Metoprolol Tartrate 25 MG Coumadin Coumadin Yes Shaye Perdomo [address] [facility] Lisinopril Lisinopril Yes Shaye Perdomo [address] [facility] Metoprolol Tartrate Metoprolol Tartrate Yes Shaye Perdomo [address] [facility] Digoxin Digoxin Yes Shaye Perdomo [address] [facility] Vital Signs Vital Name Observation Time Observation Value Comments S ource height 2021-11-02 13:40:00 63 [in_i] Commo n [facility] weight 2021-11-02 13:40:00 167.8 [lb_av] Co mmon [facility] temperature 2021-11-02 13:40:00 98.1 [degF] Com mon [facility] bmi 2021-11-02 13:40:00 29.72 kg/m2 Comm on [facility] oximetry 2021-11-02 13:40:00 98 % Commo n [facility] respiratory rate 2021-11-02 13:40:00 16 /min Common [facility] blood pressure systolic 2021-11-02 13:40:00 126 mm[Hg] [facility] blood pressure diastolic 2021-11-02 13:40:00 78 mm[Hg] Common [facility] height 2021-09-19 16:00:00 63 [in_i] Commo n [facility] weight 2021-09-19 16:00:00 169 [lb_av] Comm on [facility] temperature 2021-09-19 16:00:00 98.0 [degF] Com [facility] bmi 2021-09-19 16:00:00 29.93 kg/m2 Comm on [facility] oximetry 2021-09-19 16:00:00 98 % Commo n [facility] respiratory rate 2021-09-19 16:00:00 16 /min [facility] blood pressure systolic 2021-09-19 16:00:00 135 mm[Hg] Common [facility] blood pressure diastolic 2021-09-19 16:00:00 56 mm[Hg] [facility] height 2021-06-20 14:40:00 63 [in_i] Commo n [facility] weight 2021-06-20 14:40:00 169 [lb_av] Comm on [facility] temperature 2021-06-20 14:40:00 97.5 [degF] Com [facility] bmi 2021-06-20 14:40:00 29.93 kg/m2 Comm on [facility] oximetry 2021-06-20 14:40:00 98 % Commo n [facility] respiratory rate 2021-06-20 14:40:00 16 /min [facility] blood pressure systolic 2021-06-20 14:40:00 118 mm[Hg] [facility] blood pressure diastolic 2021-06-20 14:40:00 70 mm[Hg] Common [facility] height 2021-04-20 08:20:00 63 [in_i] Commo n [facility] weight 2021-04-20 08:20:00 173 [lb_av] Comm on [facility] temperature 2021-04-20 08:20:00 97.8 [degF] Com mon [facility] bmi 2021-04-20 08:20:00 30.64 kg/m2 Comm on [facility] oximetry 2021-04-20 08:20:00 98 % Commo n [facility] respiratory rate 2021-04-20 08:20:00 16 /min [facility] blood pressure systolic 2021-04-20 08:20:00 107 mm[Hg] [facility] blood pressure diastolic 2021-04-20 08:20:00 60 mm[Hg] [facility] Procedures Procedure Date / Time Performed Performing Clinician Source AUTHORIZATION FOR RELEASE OF PHI 2022-01-02 05:01:00 Doctor Unassigned, [place] [facility] Encounters Start Date/Time End Date/Time Encounter Type Admission Type Attending [facility] Care Facility Care Department Encounter ID Source 2023-01-15 11:06:01 Outpatient [place] [facility] [id number] [facility] 2022-12-10 13:41:00 Outpatient [place] [facility] [id number] [facility] 2022-01-24 15:07:01 [facility] [place] [facility] [id number] [facility] 2022-01-11 09:59:00 [facility]patient [facility] [place] [facility] [id number] [facility] 2022-01-09 16:53:01 Outpatient [place] [facility] [id number] [facility] 2022-01-08 12:27:16 Outpatient [place] Cortes ST[facility] [id number] [facility] 2021-11-01 13:03:01 Outpatient [place] Cortes [facility] [id number] [facility] 2021-09-28 13:50:02 Outpatient [place] Cort[place] [facility] [id number] [facility] 2021-09-13 14:11:20 Outpatient [place] Cort[place] [facility] [id number] [facility] 2021-09-13 12:38:02 Outpatient [place] Cort[place] [facility] [id number] [facility] 2021-09-13 12:21:36 Outpatient [place] Cort[place] [facility] [id number] [facility] 2021-09-13 11:34:17 Outpatient [facility] [id number] [facility] 2021-09-13 11:08:56 Outpatient Shaye Perdomo [facility] [id number] [facility] 2021-09-13 11:01:16 Outpatient Shaye Perdomo [facility] [id number] [facility] 2022-07-16 00:00:00 2022-07-16 00:00:00 (TEL) [facility] [id number] [facility] 2022-01-09 00:00:00 2022-01-09 00:00:00 (TEL) [facility]ML[facility] [id number] [facility] 2022-01-02 00:00:00 2022-01-02 00:00:00 Orders Only Doctor Unassigned, [place] [facility] [id number] [facility] 2021-11-02 00:00:00 2021-11-02 00:00:00 OFFICE VISIT EST PT LEVEL [id number] [facility] 2021-10-04 00:00:00 2021-10-04 00:00:00 (TEL) [facility]LMLC [facility] [id number] [facility] 2021-09-19 00:00:00 2021-09-19 00:00:00 OFFICE VISIT EST PT LEVEL [id number] [facility] 2021-06-20 00:00:00 2021-06-20 00:00:00 OFFICE VISIT ESTAB PT LEVEL [id number] [facility] 2021-04-27 00:00:00 2021-04-27 00:00:00 (TEL) [facility]LMLC [facility] [id number] [facility] 2021-04-20 00:00:00 2021-04-20 00:00:00 OFFICE VISIT EST PT LEVEL [id number] [facility] 2021-01-06 08:00:00 2021-01-06 08:00:00 Outpatient WILL CHESTER [facility] [id number] [facility] 2020-12-20 16:10:00 2020-12-20 16:10:00 Outpatient DEVIN MACDONALD [facility] [id number] [facility] 2020-11-22 17:50:00 2020-11-22 17:50:00 Outpatient DEVIN MACDONALD [facility] [id number] [facility] 2020-11-17 00:00:00 2020-11-17 00:00:00 [address] [facility] [id number] [facility] 2020-10-26 00:00:00 2020-10-26 00:00:00 [address] [facility] [id number] [facility] 2020-02-11 15:30:00 2020-02-11 15:30:00 Outpatient R ELYSE PHILLIP [facility] [id number] [facility] 2019-10-07 16:20:00 2019-10-07 16:20:00 Outpatient [facility] [id number] [facility] 2019-10-06 00:00:00 2019-10-06 00:00:00 Telephone Elyse Phillip [facility] [id number] 2019-10-01 00:00:00 2019-10-01 00:00:00 Orders Only Doctor Unassigned, [place] [facility] [id number] 2019-09-03 16:00:00 2019-09-03 16:00:00 Outpatient [facility] [id number] [facility]
[2023-08-18 03:19] LABS: Absolute Lymphocytes (CBC) 1.8 K/uL (0.7-4.9); Hematocrit 39.9 % (39.6-49.0); Lymphocytes % 26.9 % (15.3-44.8); MCV 83.9 fL (80-100); MPV 7.6 fL (7.6-11.3); Platelets 281 thou/uL (152-406); RBC Red Blood Cell Count 4.75 M/uL (4.33-5.43)
[2023-08-18 03:29] LABS: Protime INR 2.95
[2023-08-18 03:32] LABS: Potassium 3.8 mEq/L (3.5-5.1)
--- NOTE | 2023-08-18 03:39 | EDPHYS ---
Physician Documentation [facility] Name: Ryne Phillips Age: 53 yrs Sex: Male : 1970 Arrival Date: 08/18/2023 Time: 02:26 Bed 7 Private MD: ED Physician Carl Siddiqui HPI: 08/18 02:50 This 53 yrs old Male presents to ER via Ambulatory with complaints of Nose ec2 Bleed. 02:50 Patient arrives today for epistaxis. Patient reports that he was awoken from his sleep ec2 with bleeding from his right nare. Patient reports that he is on Coumadin and has been taking this regularly, has not checked his level in approximately 1 month. Patient reports that he has had recent cough and congestion as well as rhinorrhea.. Historical: - Allergies: 02:56 No Known Allergies; ha1 - Home Meds: 02:56 lisinopril 5 mg Oral tab 1 tab once daily [Active]; warfarin 5 mg Oral tab once daily ha1 [Active]; metoprolol tartrate 25 mg Oral tab once daily [Active]; - PMHx: 02:56 aortic valve replacement; mitral valve replacement; ha1 - Immunization history:: Adult Immunizations not up to date. - Social history:: Smoking status: Patient denies any tobacco usage or history of. ROS: 02:50 Constitutional: as per hpi ec2 Exam: 02:50 Constitutional: GEN: NAD Head: atraumatic Eyes: EOMI Ears: External ears are normal. ec2 Nose: Right nare with dried blood present, no active bleeding CV: regular rate LUNGS: no respiratory distress ABD: non-distended SKIN: no evidence of rashes MSK: no evidence of trauma NEURO: moves all extremities equally Vital Signs: 02:43 BP 122 / 76; Pulse 55; Resp 16; Temp 97.6; Pulse Ox 98% on R/A; Weight 79.38 kg; Height pf1 5 ft. 4 in. ; Pain 0/10; 03:04 BP 119 / 74; Pulse 60; Resp 17 S; Pulse Ox 100% on R/A; ha1 03:45 BP 120 / 78; Pulse 57; Resp 16; Pulse Ox 100% on R/A; km8 02:43 Body Mass Index 30.04 (79.38 kg, 162.56 cm) pf1 02:43 Pain Scale: Adult pf1 MDM: 02:49 Patient medically screened. ec2 02:50 Data reviewed: vital signs. ED course: Patient arrives today for epistaxis. Examination ec2 remarkable for nose examination as noted above. Will obtain lab work to evaluate for coagulation abnormalities. Currently considering supratherapeutic INR, epistaxis. . 03:37 ED course: CBC is reassuring without anemia, metabolic profile with appropriate renal ec2 function, INR at the upper limits of therapeutic range at 2.95, PTT elevated. Will discharge home, no recurrence of symptoms. Return precautions given. . 08/18 02:50 Order name: CBC with Diff; Complete Time: 03:37 ec2 08/18 02:50 Order name: BMP; Complete Time: 03:37 ec2 08/18 02:50 Order name: PT-INR; Complete Time: 03:37 ec2 08/18 02:50 Order name: Ptt, Activated; Complete Time: 03:37 ec2 Administered Medications: 02:55 Drug: Tessalon Perle PO 100 mg PO once Route: PO; km8 03:48 Follow up: Response: No adverse reaction km8 Disposition Summary: 08/18/23 03:38 Discharge Ordered Notes: Location: Home ec2 Condition: Stable ec2 Diagnosis - Epistaxis ec2 - Viral infection, unspecified ec2 Followup: ec2 - With: Private Physician - When: - Reason: Re-evaluation by your physician Discharge Instructions: - Discharge Summary Sheet ec2 - Nosebleed, Adult, [id number] ec2 Forms: - Medication Reconciliation Form ec2 - Thank You Letter ec2 - Antibiotic Education ec2 - Prescription Opioid Use ec2 - Patient Portal Instructions ec2 - Leadership Thank You Letter ec2 Prescriptions: - Tessalon Perles 100 mg Oral Capsule - take 1 capsule ORAL route every 8 hours As needed; 15 capsule; Refills: 0, ec2 Product Selection Permitted Signatures: Dispatcher [employer] Flor Troncoso RN RN ha1 Carl Siddiqui MD MD 2 Evelina Lyn RN RN km8
--- NOTE | 2023-08-18 03:39 | ER ---
Nurse's Notes [facility] Name: Ryne Phillips Age: 53 yrs Sex: Male : 1970 Arrival Date: 08/18/2023 Time: 02:26 Bed 7 Private MD: Diagnosis: Epistaxis;Viral infection, unspecified Presentation: 08/18 02:43 Chief complaint: Patient states: right naris bleed,onset 2300. Patient stated also has pf1 cough with congestion,onset Saturday. Coronavirus screen: Vaccine status: Patient reports being unvaccinated. Client denies travel out of the [place] in the last 14 days. Client presents with at least one sign or symptom that may indicate coronavirus-19. Ebola Screen: Patient negative for fever greater than or equal to 101.5 degrees Fahrenheit, and additional compatible Ebola Virus Disease symptoms. Initial Sepsis Screen: Does the patient meet any 2 criteria? No. Patient's initial sepsis screen is negative. Does the patient have a suspected source of infection? No. Patient's initial sepsis screen is negative. Risk Assessment: Do you want to hurt yourself or someone else? Patient reports no desire to harm self or others. 02:43 Method Of Arrival: Ambulatory pf1 02:43 Acuity: ABBEY 4 pf1 02:56 Onset of symptoms was August 17, 2023. [facility] Triage Assessment: 02:48 General: Appears comfortable, Behavior is calm, cooperative. Pain: Complains of pain in ha1 sore throat Pain does not radiate. Pain currently is 5 out of 10 on a pain scale. EENT: Reports sore throat and nose bleeding . Neuro: Level of Consciousness is awake, alert, obeys commands, Oriented to person, place, time, situation. Cardiovascular: Capillary refill < 3 seconds Patient's skin is warm and dry. Respiratory: Airway is patent Respiratory effort is even, unlabored, Respiratory pattern is regular, symmetrical. GI: No signs and/or symptoms were reported involving the gastrointestinal system. Derm: Skin is pink, warm \T\ dry. Musculoskeletal: Circulation, motion, and sensation intact. Range of motion: intact in all extremities. Historical: - Allergies: 02:56 No Known Allergies; ha1 - Home Meds: 02:56 lisinopril 5 mg Oral tab 1 tab once daily [Active]; warfarin 5 mg Oral tab once daily ha1 [Active]; metoprolol tartrate 25 mg Oral tab once daily [Active]; - PMHx: 02:56 aortic valve replacement; mitral valve replacement; ha1 - Immunization history:: Adult Immunizations not up to date. - Social history:: Smoking status: Patient denies any tobacco usage or history of. Screenin:48 [facility] ED Fall Risk Assessment (Adult) History of falling in the last 3 months, ha1 including since admission No falls in past 3 months (0 pts) Confusion or Disorientation No (0 pts) Intoxicated or Sedated No (0 pts) Impaired Gait No (0 pts) Mobility Assist Device Used No (0 pt) Altered Elimination No (0 pt) Score/Fall Risk Level 0 - 2 = Low Risk Oriented to surroundings, Maintained a safe environment, Educated pt \T\ family on fall prevention, incl call for assistance when getting out of bed, Hourly rounding (assess needs \T\ fall precautionary measures) done. Abuse screen: Denies threats or abuse. Denies injuries from another. Nutritional screening: No deficits noted. Tuberculosis screening: No symptoms or risk factors identified. Assessment: 02:48 Reassessment: see triage assessment. ha1 Vital Signs: 02:43 BP 122 / 76; Pulse 55; Resp 16; Temp 97.6; Pulse Ox 98% on R/A; Weight 79.38 kg; Height pf1 5 ft. 4 in. ; Pain 0/10; 03:04 BP 119 / 74; Pulse 60; Resp 17 S; Pulse Ox 100% on R/A; ha1 03:45 BP 120 / 78; Pulse 57; Resp 16; Pulse Ox 100% on R/A; km8 02:43 Body Mass Index 30.04 (79.38 kg, 162.56 cm) pf1 02:43 Pain Scale: Adult pf1 ED Course: 02:28 Patient arrived in ED. ag3 02:31 Carl Siddiqui MD is Attending Physician. ec2 02:48 Patient has correct armband on for positive identification. Bed in low position. Call ha1 light in reach. Side rails up X 1. Adult w/ patient. 02:50 Triage completed. pf1 02:50 Arm band placed on right wrist. km8 03:03 CBC with Diff Sent. pm6 03:03 BMP Sent. pm6 03:03 PT-INR Sent. pm6 03:03 Ptt, Activated Sent. pm6 03:49 No provider procedures requiring assistance completed. Patient did not have IV access km8 during this emergency room visit. 03:50 Provided Education on: d/c teaching. km8 Administered Medications: 02:55 Drug: Tessalon Perle PO 100 mg PO once Route: PO; km8 03:48 Follow up: Response: No adverse reaction km8 Medication: 03:03 VIS not applicable for this client. ha1 Outcome: 03:38 Discharge ordered by . ec2 03:50 Discharged to home ambulatory, km8 03:50 Condition: good 03:50 Discharge instructions given to patient, family, Instructed on discharge instructions, follow up and referral plans. medication usage, Demonstrated understanding of instructions, follow-up care, medications, Prescriptions given X 1, 03:51 Patient left the ED. km8 Signatures: Cyn Conklin ag3 Flor Addison RN RN ha1 Alice Araujo RN RN pf1 Carl Siddiqui MD MD ec2 Evelina Lyn RN RN km8 Amy Ferguson pm6
[2023-08-18 05:33] VITALS: BP 120/78; TEMP 97.6; O2SAT 100
== END ==
LOC: ER 02:26
DX: R04.0 Epistaxis (principal); B34.9 Viral infection, unspecified; Z79.01 Long term (current) use of anticoagulants; Z95.2 Presence of prosthetic heart valve
CPT/HCPCS: 36415; 80048; 85025; 85610; 85730; 99284

== ENCOUNTER → 2023-08-28 | Emergency (ER) | payer OTHER ==
--- OUTSIDE RECORDS SUMMARY | 2023-08-28 20:05 | XMS REPORT | Continuity of Care Document ---
Author Name Unknown Address [address] [facility] [address] [place] [address] [facility] thconnect Address [address] [facility]. 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 [place] Name Role Phone John Gilda BOWMAN Primary Care Physician [phone] [place] Attending Clinician Unavailable Shaye Perdomo Attending Clinician Unavailable Jovani Newell Attending Clinician Unavailable Doctor Unassigned, [place] Attending Clinician U WILL [place] Attending Clinician Unavail able DEVIN HARRY Attending Clinician Unavailable ELYSE PHILLIP K.HHelder Attending Clinician Unavailjazlyn Phillip MD, Elyse K.HHelder Attending Clinician [phone] [place] MOREJON Admitting Clinician Unavailable Payers Payer Name Policy Type Policy Number Effective Date Expirati on Date Source [place] [id number] [facility] C1 [id number] 2019 00:00:00 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-term current use of anticoagul ant Disease Active 09-08 00:00: 00 [facility] S/P mitral valve replacemen t with metallic valve S/P mitral valve replacemen t with metallic valve Disease Active 09-08 00:00: 00 [facility] S/P aortic valve replacemen t with metallic valve S/P aortic valve replacemen t with metallic valve Disease Active 09-08 00:00: 00 [facility] History of rheumatic fever History of rheumatic fever Disease Active 09-08 00:00: 00 [facility] ARRIAGA (dyspnea on exertion) ARRIAGA (dyspnea on exertion) Disease Active 09-08 00:00: 00 [facility] Atypical chest pain Atypical chest pain Disease Active 09-08 00:00: 00 [facility] [id number] H/O aortic valve replacemen t Problem [facility] [id number] Encounter for general adult medical examinatio n with abnormal findings Problem [facility] [id number] Paresthesi a of right leg Problem [facility] [id number] Arm paresthesi a, right Problem [facility] [id number] 109 H/O mitral valve replacemen t Problem [facility] [id number] CVD (cardiovas cular disease) Problem [facility] [id number] Lipid metabolism abnormalit y Problem [facility] [id number] Cough Problem [facility] [id number] Eye muscle twitches Problem [facility] Allergies, Adverse Reactions, Alerts Allergy Name Allergy Type Status Severity Reaction(s) Onset Date Inactive Date Treating Clinician Comments Source No Known Allergie s DA Active U 02-13 00:00: 00 [facility] NO KNOWN ALLERGIE S Drug Class Active [facility] Social History Social Habit Start Date Stop Date Quantity Comments Source History of Tobacco Use [facility] Sex Assigned At [facility] Alcohol intake 2019-01-09 00:00:00 2019-01-09 00:00:00 .14 /d [facility] Smoking Status Start Date Stop Date Source Former Smoker 2022-01-26 00:00:00 2022-01-26 00:00:00 [facility] Medications Ordered Medication Name Filled Medication Name Start Date Stop Date Current Medication? Ordering Clinician Indication Dosage Frequency Signature (SIG) Comments Components Source warfarin 5 mg tablet 08-31 00:00: 00 Yes [id number] TAKE ONE TABLET BY MOUTH EVERY EVENING [facility] LISINOPRIL 5 mg tablet 2018-08 00:00: 00 Yes [id number] TAKE ONE TABLET BY MOUTH DAILY [facility] DIGOXIN 125 mcg (0.125 mg) tablet 2018-08 00:00: 00 Yes [id number] TAKE ONE TABLET BY MOUTH DAILY [facility] METOPROLOL TARTRATE 25 mg tablet 2018-08 00:00: 00 Yes [id number] TAKE 1/2 TABLET BY MOUTH DAILY [facility] DIGOXIN 125 mcg (0.125 mg) tablet 2018-08 00:00: 00 Yes [id number] TAKE ONE TABLET BY MOUTH DAILY [facility] WARFARIN 5 mg tablet 02-11 00:00: 00 Yes TAKE ONE TABLET BY MOUTH EVERY EVENING [facility] warfarin 5 mg tablet 10-13 00:00: 00 Yes 5mg Take 1 tablet by mouth every evening. 5 mg 4 days/week, 7.5 mg 3 days/week [facility] aspirin 81 mg chewable tablet 04-15 16:45: 22 Yes 81mg Take 81 mg by mouth daily. [facility] fluticasone 50 mcg/actuati on nasal spray 04-11 00:00: 00 Yes [id number] 1{spray } Use 1 Lenore in each nostril 2 (two) times daily. [facility] benzonatate (TESSALON PERLES) 100 mg capsule 04-11 00:00: 00 Yes [id number] 100mg Take 1 capsule by mouth 3 (three) times daily. [facility] lisinopril 5 mg tablet 12-05 00:00: 00 Yes [id number] 5mg Take 1 tablet by mouth daily. [facility] Aspirin Adult Low Dose 81 MG Aspirin [...] Coumadin Coumadin Yes Shaye Perdomo 1 tablet [facility] Lisinopril Lisinopril Yes Shaye Perdomo 1 tablet [facility] Metoprolol Tartrate Metoprolol Tartrate Yes Shaye Perdomo 1 tablet with food [facility] Digoxin Digoxin Yes Shaye Perdomo 1 tablet [facility] Aspirin Adult Low Dose 81 MG Aspirin [...] t_with_ food} QD Metoprolol Tartrate 25 MG Vital Signs Vital Name Observation Time Observation Value Comments S alexce height 2021-11-02 13:40:00 63 [in_i] Commo n [facility] weight 2021-11-02 13:40:00 167.8 [lb_av] Co mmon [facility] temperature 2021-11-02 13:40:00 98.1 [degF] Com mon [facility] bmi 2021-11-02 13:40:00 29.72 kg/m2 Comm on [facility] oximetry 2021-11-02 13:40:00 98 % Commo n [facility] respiratory rate 2021-11-02 13:40:00 16 /min Common [facility] blood pressure systolic 2021-11-02 13:40:00 126 mm[Hg] [facility] diastolic 2021-11-02 13:40:00 78 mm[Hg] [facility] height 2021-09-19 16:00:00 63 [in_i] Commo n [facility] weight 2021-09-19 16:00:00 169 [lb_av] Comm on [facility] temperature 2021-09-19 16:00:00 98.0 [degF] Com [facility] bmi 2021-09-19 16:00:00 29.93 kg/m2 Comm on [facility] oximetry 2021-09-19 16:00:00 98 % Commo n [facility] respiratory rate 2021-09-19 16:00:00 16 /min [facility] blood pressure systolic 2021-09-19 16:00:00 135 mm[Hg] [facility] blood pressure diastolic 2021-09-19 16:00:00 56 mm[Hg] [facility] height 2021-06-20 14:40:00 63 [in_i] Commo n [facility] weight 2021-06-20 14:40:00 169 [lb_av] Comm on [facility] temperature 2021-06-20 14:40:00 97.5 [degF] Com [facility] bmi 2021-06-20 14:40:00 29.93 kg/m2 Comm on [facility] oximetry 2021-06-20 14:40:00 98 % Commo n [facility] respiratory rate 2021-06-20 14:40:00 16 /min [facility] blood pressure systolic 2021-06-20 14:40:00 118 mm[Hg] Common [facility] blood pressure diastolic 2021-06-20 14:40:00 70 mm[Hg] [facility] height 2021-04-20 08:20:00 63 [in_i] Commo n [facility] weight 2021-04-20 08:20:00 173 [lb_av] Comm on [facility] temperature 2021-04-20 08:20:00 97.8 [degF] Com mon [facility] bmi 2021-04-20 08:20:00 30.64 kg/m2 Comm on [facility] oximetry 2021-04-20 08:20:00 98 % Commo n [facility] respiratory rate 2021-04-20 08:20:00 16 /min [facility] blood pressure systolic 2021-04-20 08:20:00 107 mm[Hg] [facility] blood pressure diastolic 2021-04-20 08:20:00 60 mm[Hg] [facility] Procedures Procedure Date / Time Performed Performing Clinician Source AUTHORIZATION FOR RELEASE OF PHI 2022-01-02 05:01:00 Doctor Unassigned, [place] [facility] Encounters Start Date/Time End Date/Time Encounter Type Admission Type Attending Clinicians Care Facility Care Department Encounter ID Source 2023-08-22 09:32:00 [place] [facility] [id number] [facility] 2023-08-21 13:58:00 [place] [facility] [id number] [facility] 2023-01-15 11:06:01 [place]patient [place] [facility] [id number] [facility] 2022-12-10 13:41:00 Outpatient [place] [facility] 2022-01-24 15:07:01 Outpatient [place] [facility] ST[facility] 2022-01-11 09:59:00 Outpatient [place] [facility] 2022-01-09 16:53:01 Outpatient [place] [facility] 2022-01-08 12:27:16 Outpatient [place] [facility] 2021-11-01 13:03:01 Outpatient [place] [facility] 2021-09-28 13:50:02 Outpatient [place] [facility] 2021-09-13 14:11:20 Outpatient [place] [facility] 2021-09-13 12:38:02 Outpatient [place] [facility] [id number] [facility] 2021-09-13 12:21:36 Outpatient [place] STL[facility]C STL[facility] [id number] [facility] 2021-09-13 11:34:17 Outpatient STLMLC STL[facility]C [id number] [facility] 2021-09-13 11:08:56 Outpatient Shaye Perdomo STLMLC STLMLC [id number] [facility] 2021-09-13 11:01:16 Outpatient Shaye Perdomo STLMLC STLMLC [id number] [facility] 2023-02-21 08:00:00 2023-02-21 08:01:00 Outpatient Jovani Powell [facility] [id number] 65 [facility] 2022-07-16 00:00:00 2022-07-16 00:00:00 (TEL) STLMLC STLMLC [id number] [facility] 2022-01-09 00:00:00 2022-01-09 00:00:00 (TEL) STLMLC STLMLC [id number] [facility] 2022-01-02 00:00:00 2022-01-02 00:00:00 Orders Only Doctor Unassigned, [place] [facility] [id number] [facility] 2021-11-02 00:00:00 2021-11-02 00:00:00 OFFICE VISIT EST PT LEVEL 3 STLMLC STLMLC [id number] [facility] 2021-10-04 00:00:00 2021-10-04 00:00:00 (TEL) STLMLC STLMLC [id number] [facility] 2021-09-19 00:00:00 2021-09-19 00:00:00 OFFICE VISIT EST PT LEVEL 3 STLMLC STLMLC [id number] [facility] 2021-06-20 00:00:00 2021-06-20 00:00:00 OFFICE VISIT ESTAB PT LEVEL 3 STLMLC STLMLC [id number] [facility] 2021-04-27 00:00:00 2021-04-27 00:00:00 (TEL) STLMLC STLMLC [id number] [facility] 2021-04-20 00:00:00 2021-04-20 00:00:00 OFFICE VISIT EST PT LEVEL 3 STLMLC STLMLC [id number] [facility] 2021-01-06 08:00:00 2021-01-06 08:00:00 Outpatient WILL CHESTER [facility] [id number] [facility] 2020-12-20 16:10:00 2020-12-20 16:10:00 Outpatient Monisha KAMRYNDEVIN [facility] [id number] [facility] 2020-11-22 17:50:00 2020-11-22 17:50:00 Outpatient DEVIN MACDONLAD [facility] [id number] [facility] 2020-11-17 00:00:00 2020-11-17 00:00:00 Outpatient STLMLC STLMLC [id number] [facility] 2020-10-26 00:00:00 2020-10-26 00:00:00 Outpatient STLMLC STLMLC [id number] [facility] 2020-02-11 15:30:00 2020-02-11 15:30:00 Outpatient ELYSE NUNEZ [facility] [id number] [facility] 2019-10-07 16:20:00 2019-10-07 16:20:[address] [facility] [id number] [facility] 2019-10-06 00:00:00 2019-10-06 00:00:00 Telephone Elyse Phillip [facility] [id number] 2019-10-01 00:00:00 2019-10-01 00:00:00 Orders Only Doctor Unassigned, [place] [facility] [id number] 2019-09-03 16:00:00 2019-09-03 16:00:[address] [facility] [id number] [facility] Results Test Description Test Time Test Comments Results Result Co mments Source [id number] 16:56:00* Test Item Value Reference Range Interpretation [facility] (test code = MAG) 1.9 mg/dL 1.6-2.3 N PROTHROMBIN [id number] 16:34:00* Test Item Value Reference Range Interpretation Comme [facility] PROTHROMBIN TIME PATIENT (test code = PTP) 46.3 SECONDS 9.2-12.1 H INTERNATIONAL NORMAL RATIO (test code = INR) 4.1 The INR is to be used only for monitoring ORAL ANTICOAGULANTTHERAPY. Indication INR Value1. Prophylaxis/treatment of: Venous Thrombosis, Pulmonary Embolism 2.0 - 3.02. Prevention of systemic embolism from: Tissue heart valves 2.0 - 3.0 Acute myocardial infarction (to present systemic embolism)* 2.0 - 3.0 Valvular heart disease 2.0 - 3.0 Atrial fibrillation 2.0 - 3.03. Mechanical prosthetic valves (high risk) 2.5 - 3.5 * If oral anticoagulant therapy is elected to preventrecurrent myocardial infarction, an INR of 2.5-3.5 isrecommended, consistent with Food and Drug Administrationrecommen dations. THROMBOPLASTIN TIME [id number] 16:34:00* Test Item Value Reference Range Interpretation [facility] THROMB[facility] TIME PARTIAL (test code = PTT) 53.2 SECONDS 23.4-37.0 H Therapeutic Rang e for Heparin EFFECTIVE 02/25/13 Heparin IU/mL aPTT Seconds0.3 64.30.7 88.8 CBC W/AUTO [id number] 16:27:00* Test Item Value Reference Range Interpretation Comme [facility] WHITE BLOOD CELL (test code = WBC) 6.4 x10 3/uL 5.0-12.0 N RED BLOOD CELL (test code = RBC) 5.01 x10 6/uL 4.70-6.10 N HEMOGLOBIN (test code = HGB) 14.1 g/dL 14.0-18.0 N HEMATOCRIT (test code = HCT) 40.9 % 37.0-49.0 N MEAN CELL VOLUME (test code = MCV) 82 fL 80-94 N MEAN CELL HGB (test code = MCH) 28.1 pg 27-31 N MEAN CELL HGB CONCENTRATION (test code = MCHC) 34.5 g/dL 33-37 N RED CELL DISTRIBUTION WIDTH (test code = RDW) 14.3 % 11.5-15.5 N PLATELET COUNT (test code = PLT) 274 x10 3/uL 130-400 N MEAN PLATELET VOLUME (test c ode = MPV) 9.2 fL 9.4-16.4 L NEUTROPHIL % (test code = NT%) 56.4 % 43-65 N IMMATURE GRANULOCYTE % (test code = IG%) 0.3 % 0.0-2.0 N LYMPHOCYTE % (test code = LY%) 30.2 % 20.5-45.5 N MONOCYTE % (test code = MO%) 10.3 % 5.5-11.7 N EOSINOPHIL % (test code = EO%) 2.0 % 0.9-2.9 N BASOPHIL % (test code = BA%) 0.8 % 0.2-1.0 N NUCLEATED RBC % (test code = NRBC%) 0.0 % 0-1.0 N NEUTROPHIL # (test code = NT#) 3.63 x10 3/uL 2.2-4.8 N IMMATURE GRANULOCYTE # (test code = IG#) 0.02 x10 3/uL 0-0.03 N LYMPHOCYTE # (test code = LY#) 1.94 x10 3/uL 1.3-2.9 N MONOCYTE # (test code = MO#) 0.66 x10 3/uL 0.3-0.8 N EOSINOPHIL # (test code = EO#) 0.13 x10 3/uL 0.0-0.2 N BASOPHIL # (test code = BA#) 0.05 x10 3/uL 0.0-0.1 N Notes Date/Time Note Provider Source 2023-02-21 18:05:00 [id number]:05:91947 6-0081 [facility] [address] [place] [address] PATIENT NAME: ANN PHILLIPS ADMIT DATE: ACCOUNT NO: [id number] ROOM NO: AGE: 52 REPORT TYPE: eTRANSESOPHAGEAL REPORT SEX: M ADMITTING PHYSICIAN: ATTENDING PHYSICIAN:Jovani Newell MD *[facility]*[address], [place] [address]Lvlep Transesophageal Echocardiogram Patient: Mila Phillips Date: 02/21/2023 BP: 111 / 54 Location: MARY GRACE: [id number] : 1970 Age: 52 Height: 64 in / 162.6 cmAccession#: [id number] Gender: M Weight: 172.6 lb / 78.5 kgBMI/BSA: 29.7 kg/m 2 / 1.91 m 2 *Ordering Physician: * Jovani Newell MD *Interpreting Physician: Jovani Boston MD*Brick Dropper: Jocelyne Craig Indications: Z95.2, R94.31. Study data: Consent: The risks, benefits, and alternatives to theprocedure were explained to the patient and informed consent wasobtained. Procedure: Initial setup: The patient was brought to thelaboratory in the fasting state.Intravenous access was obtained. SurfaceECG leads and pulse oximetric signals were monitored. Sedation. Moderatesedation was administered by anesthesiology staff. Transesophagealechocardiography was performed. Topical anesthesia was obtained usingviscous lidocaine. A transesophageal probe (SN: [id number]) was inserted bythe attending warranty clerk without difficulty. Images were obtainedusing a [employer] VIVID E95 2 cardiac ultrasound machine. Location:Catheterization laboratory. Patient status: Outpatient. Study status: Routine. Study completion: The patient tolerated the procedure well.There were no complications. Findings PATIENT NAME: ANN PHILLIPS Left ventricle: The cavity size is normal. Systolic function is normal.The estimated ejection fraction is 55-59%.Right ventricle: The cavity size is normal. Systolic function isnormal.Left atrium: The atrium is dilated. The appendage is of normal size.Emptying velocity is normal. There is no evidence of a thrombus in theatrial cavity or appendage. No spontaneous echo contrast is observed.Right atrium: The atrium is normal in size. There is no evidence of athrombus in the atrial cavity or appendage.Atrial septum: No defect or patent foramen ovale is identified.Doppler shows no mieic-sc-rryz atrial level shunt.Aorta: Aortic root: The aortic root is normal in size.There is no atheroma. There is no evidence for aneurysm. There is noevidence for dissection.Aortic valve: There is a mechanical prosthetic valve. There is trivialregurgitation.Mitral valve: There is a bileaflet tilting disk mechanical prosthesis.Normal mechanical valve mobility. There is normal / physiologicregurgitation noted at the hinges. There is no evidence of avegetation.Tricuspid valve: The valve is structurally normal. There is noevidence of a vegetation. There is mild regurgitation.Pulmonic valve: No thickening. Cusp separation is normal. There isno evidence of a vegetation. There is no regurgitation.Systemic veins:Superior vena cava: The vessel is normal in size. Measurements Left ventricle Value Ref DFT 370 ms ----- LVET 350 ms ----- Aortic valve Value Ref Peak v, S 3.2 m/sec ----- Mean v, S 1.96 m/sec ----- VTI, S 68.7 cm ----- Mean grad, S 18.0 mm Hg ----- Peak grad, S 41.0 mm Hg ----- Mitral valve Value Ref Mean v, D 0.66 m/sec ----- Mean grad, D 2.3 mm Hg ----- Tricuspid valve Value Ref TR peak v 2.4 m/sec <=2.8 Peak RV-RA grad, S 23 mm Hg ----- Max TR jass 2.4 m/sec ----- Conclusions PATIENT NAME: ANN PHILLIPS Summary: 1. Left ventricle: The cavity size is normal. Systolic function is normal. The estimated ejection fraction is 55-59%.2. Left atrium: The atrium is dilated. There is no evidence of a thrombus in the atrial cavity or appendage. No spontaneous echo contrast is observed.3. Right atrium: There is no evidence of a thrombus in the atrial cavity or appendage.4. Atrial septum: No defect or patent foramen ovale is identified. Doppler shows no uambq-js-cwcr atrial level shunt.5. Aortic valve: There is a mechanical prosthetic valve. Appears to be bileaflet but difficult to assess mobility due to shadowing artifact. There is trivial regurgitation. The peak systolic velocity is 3.2 m/sec. The mean systolic gradient is 18.0 mm Hg.6. Mitral valve: There is a bileaflet tilting disk mechanical prosthesis. Normal mechanical valve mobility. There is normal / physiologic regurgitation noted at the hinges. There is no evidence of a vegetation. The mean diastolic gradient is 2.3 mm Hg.7. Tricuspid valve: There is no evidence of a vegetation. There is mild regurgitation.8. Pulmonic valve: There is no evidence of a vegetation. Prepared and electronically signed by Jovani Newell MD02/21/2023 18:05 at 1805 PATIENT NAME: ANN PHILLIPS [id number]:05:00C.[id number] ilable for patient [id number]:06:25 [facility] 2023-02-21 10:55:00 [id number]:55:00 [facility] ([facility])DT Operative NoteREPORT#:[id number] REPORT STATUS: SignedDATE:02/21/23 TIME: 1055 PATIENT: ANN PHILLIPS UNIT #: [id number]#: [id number] ROOM/BED:: 69 AGE: 52 SEX: M ATTEND: Jovani Newell MDADM AUTHOR: Carla Cabrera MD * ALL edits or amendments must be made on the electronic/computer document * Operative Report Operative NoteNote:[facility] Cardiac Catheterization NoteProcedure date: 02/21/20[place] Guide Attending: Jacobo Cabrera MDReferring Physician: Jovani Newell Procedures Performed:1. Fluoroscopy Preprocedure Diagnoses and/or indications:52-year-old male with a history of hypertension and rheumatic heart disease status post double mechanical aortic and mitral valve replacement 2001 at [facility]. 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 Jovani Newell. He had an echocardiogram which showed a peak velocityof 4.1 m/s and cross the mechanical aortic valve with a mean gradient of 33 mmHgand a DVI of 0.21. The mechanical mitral valve appears to be functioning normally with a mean diastolic gradient of 5 mmHg. He underwent TRISTAN today to evaluate the valves and now presents for fluoroscopy of the valves. Procedure in detail:After written informed consent was obtained the patient was brought to the cardiac catheterization laboratory in a fasting state. Fluoroscopy of the valve was then performed. Post-Procedure Diagnoses and/or Impression:1. Bileaflet mechanical aortic and mitral valve with normal movement Plan:Patient will follow up with Dr. Jovani Newell at 1058 RPT #:[id number] OF REPORTOPOperative [id number]:55:00C.[id number] ilable for patient [id number]:58:28 [facility] 2023-02-18 15:42:00 [id number] 5-0049 [facility] [address] [place], [place] [address]y. [address] [place] [address] PATIENT NAME: ANN PHILLIPS ADMIT DATE: ACCOUNT NO: [id number] ROOM NO: AGE: 52 REPORT TYPE: ELECTROCARDIOGRAM SEX: M ADMITTING PHYSICIAN: ATTENDING PHYSICIAN:Jovani Newell MD Order:[id number] Reason : PREOP Test Date/Time Stamp:SatFeb 18 2023 15:42:59Blood Pressure : / mmHGVent. Rate : 076 BPM Atrial Rate : 076 BPM P-R Int : 158 ms QRS Dur : 102 ms QT Int : 404 ms P-R-T Axes : 069 055 084 degrees QTc Int : 454 ms Sinus rhythm with marked sinus arrhythmiaOtherwise normal ECG Confirmed by MILDRED TRAMMELL ([id number]) on 02/20/2023 10:14:25 AM Referred By: Jovani Newell Confirmed by:MILDRED TRAMMELL at 1014 PATIENT NAME: ANN PHILLIPS .[id number] AVAvailable for patient [id number] [facility]
[2023-08-28 21:02] LABS: Absolute Lymphocytes (CBC) 2.6 K/uL (0.7-4.9); Hematocrit 39.7 % (39.6-49.0); Lymphocytes % 29.7 % (15.3-44.8); MCV 83.4 fL (80-100); MPV 7.3 fL (7.6-11.3); Platelets 379 thou/uL (152-406); RBC Red Blood Cell Count 4.75 M/uL (4.33-5.43)
[2023-08-28 21:06] LABS: Protime INR 3.1
[2023-08-28 21:23] LABS: Albumin 3.4 g/dL (3.4-5.0); Bilirubin Direct 0.1 mg/dL (0-0.2); Bilirubin Indirect, Calculated 0.4 mg/dL (0.2-0.8); Bilirubin Total 0.5 mg/dL (0.2-1.0); Magnesium 2.1 mg/dL (1.6-2.4); Potassium 4.2 mEq/L (3.5-5.1); Protein, Total 7.2 g/dL (6.4-8.2); Troponin High Sensitivity 9.7 pg/mL (<58.9)
--- NOTE | 2023-08-28 21:28 | RAD REPORT ---
EXAM DESCRIPTION: Maria R Single View08/28/2023 8:40 pm CLINICAL HISTORY: Chest pain COMPARISON: 2018 FINDINGS: The lungs appear clear of acute infiltrate. The heart is mildly enlarged. Postsurgical changes involve the chest IMPRESSION: No acute abnormalities displayed
--- NOTE | 2023-08-28 22:29 | RAD REPORT ---
EXAM DESCRIPTION: CT - Chest For Pe Angio - 08/28/2023 10:10 pm CLINICAL HISTORY: Chest pain COMPARISON: 2018 TECHNIQUE: Dynamically enhanced axial 3 mm thick images of the chest were obtained during administra tion of 100 mL Isovue 370 IV contrast. Coronal and oblique reconstruction images were generated and r eviewed. Exam utilizes a protocol for optimal evaluation of pulmonary arterial tree. Maximum intensity projections 3D imaging was utilized All CT scans are performed using dose optimization technique as appropriate and may include automated exposure control or mA/KV adjustment according to patient size. FINDINGS: A pulmonary embolus is not seen. A thoracic aortic aneurysm is not noted. A pleural effusion is not seen. A pericardial effusion is not seen. A lung consolidation is not present. 9 millimeter right middle lobe nodule unchanged is benign Aortic valve replacement IMPRESSION: Negative for a pulmonary embolism.
--- NOTE | 2023-08-28 23:11 | EDPHYS ---
Physician Documentation [facility] Name: Ryne Phillips Age: 53 yrs Sex: Male : 1970 Arrival Date: 08/28/2023 Time: 20:00 Bed 15 Private MD: ED Physician Karyn Raymundo HPI: 08/28 22:58 This 53 yrs old Male presents to ER via Ambulatory with complaints of Chest gb1 Pain, Shortness Of Breath. 23:07 53-year-old male here with chest pain and shortness of breath over the left gb1 anterior chest wall. He is also stating that its sharp in nature with radiation to the right side earlier today. He denies any syncope or fever or chills. He has a history of an aortic valve replacement and mitral valve replacement and is also had a history of hypertension. He is no longer a smoker and is not a diabetic. He takes metoprolol. His cpht of record is Dr. Page. He is currently taking chronic anticoagulation for his valves.. Historical: - Allergies: 20:08 No Known Allergies; cm10 - Home Meds: 20:10 warfarin 5 mg Oral tab once daily [Active]; metoprolol tartrate 25 mg Oral tab once cm10 daily [Active]; 20:37 aspirin 81 mg Oral tablet,chewable 1 tab daily [Active]; tl4 - PMHx: 20:08 aortic valve replacement; mitral valve replacement; cm10 20:10 Hypertensive disorder; cm10 - Immunization history:: Adult Immunizations up to date. - Social history:: Smoking status: Patient denies any tobacco usage or history of. ROS: 22:58 Cardiovascular: Positive for chest pain, with cough, of the anterior aspect of left gb1 upper chest and left breast, 22:58 Respiratory: Positive for pleurisy, shortness of breath, Exam: 22:59 Constitutional: This is a well developed, well nourished patient who is awake, alert, gb1 and in no acute distress. Head/Face: Normocephalic, atraumatic. Eyes: Pupils equal round and reactive to light, extra-ocular motions intact. Lids and lashes normal. Conjunctiva and sclera are non-icteric and not injected. Cornea within normal limits. Periorbital areas with no swelling, redness, or edema. ENT: Nares patent. No nasal discharge, no septal abnormalities noted. Tympanic membranes are normal and external auditory canals are clear. Oropharynx with no redness, swelling, or masses, exudates, or evidence of obstruction, uvula midline. Mucous membranes moist. Neck: Trachea midline, no thyromegaly or masses palpated, and no cervical lymphadenopathy. Supple, full range of motion without nuchal rigidity, or vertebral point tenderness. No Meningismus. Chest/axilla: Normal chest wall appearance and motion. Nontender with no deformity. No lesions are appreciated. Cardiovascular: Regular rate and rhythm with a normal S1 and S2. No gallops, murmurs, or rubs. Normal PMI, no JVD. No pulse deficits. +TTP over anterior chest wall Respiratory: Lungs have equal breath sounds bilaterally, clear to auscultation and percussion. No rales, rhonchi or wheezes noted. No increased work of breathing, no retractions or nasal flaring. Abdomen/GI: Soft, non-tender, with normal bowel sounds. No distension or tympany. No guarding or rebound. No evidence of tenderness throughout. Back: No spinal tenderness. No costovertebral tenderness. Full range of motion. Skin: Warm, dry with normal turgor. Normal color with no rashes, no lesions, and no evidence of cellulitis. MS/ Extremity: Pulses equal, no cyanosis. Neurovascular intact. Full, normal range of motion. Neuro: Awake and alert, GCS 15, oriented to person, place, time, and situation. Cranial nerves II-XII grossly intact. Motor strength 5/5 in all extremities. Sensory grossly intact. Cerebellar exam normal. Normal gait. Psych: Awake, alert, with orientation to person, place and time. Behavior, mood, and affect are within normal limits. Vital Signs: 20:09 BP 141 / 84; Pulse 72; Resp 16; Temp 96.6(TE); Pulse Ox 99% ; Weight 78.02 kg; Height 5 cm10 ft. 4 in. ; Pain 8/10; 20:34 BP 129 / 83; Pulse 71; Resp 16; Pulse Ox 98% on R/A; Pain 6/10; tl4 20:09 Body Mass Index 29.52 (78.02 kg, 162.56 cm) cm10 20:09 Pain Scale: Adult cm10 20:34 Pain Scale: Adult tl4 [place] Coma Score: 20:34 Eye Response: spontaneous(4). Motor Response: obeys commands(6). Verbal Response: tl4 oriented(5). Total: 15. MDM: 20:18 Patient medically screened. gb1 22:59 Differential diagnosis: abnormal EKG, acute pericarditis, coronary artery disease chest gb1 wall pain, congestive heart failure cholecystitis, Cholelithiasis esophagitis, gastritis, myocarditis, pancreatitis, peptic ulcer disease, pericarditis, pleurisy, pneumonia, pulmonary embolus, stable angina, unstable angina. HEART Score: History: Moderately Suspicious (1), ECG: Non specific repolarization disturbance / LBTB / PM (1), Age: > 45 and < 65 years (1), Risk Factors: 1 or 2 risk factors (1), [Hypertension] Troponin: < or = 1 x Normal Limit (0), Total Score = 4. Data reviewed: vital signs, nurses notes. 23:05 ED course: 53-year-old male here with chest pain and shortness of breath over gb1 the left anterior chest wall. He is also stating that its sharp in nature with radiation to the right side earlier today. He denies any syncope or fever or chills. He has a history of an aortic valve replacement and mitral valve replacement and is also had a history of hypertension. He is no longer a smoker and is not a diabetic. He takes metoprolol. His cpht of record is Dr. Page. He is currently taking chronic anticoagulation for his valves.. 23:07 ED course: 53-year-old male here with chest pain and shortness of breath on the gb1 left side of his anterior chest wall. He is also short of breath and has history of aortic valve and mitral valve replacement. He has a history of hypertension as well. He denies any fever or chills and I do not appreciate any focal pneumonia on chest x-ray. His CT angiogram of the chest is negative for PE. At this time he is stable to go home and follow-up with his cpht of record. I doubt unstable angina or acute coronary syndrome at this time. His labs are also within normal limits with troponin being negative as well. I doubt acute cholecystitis or choledocholithiasis. I doubt but did consider gastritis doubt perforated ulcer.. 08/28 20:21 Order name: Basic Metabolic Panel; Complete Time: 21:25 08/28 20:21 Order name: CBC with Diff; Complete Time: 21:25 08/28 20:21 Order name: LFT's; Complete Time: 21:25 08/28 20:21 Order name: Magnesium; Complete Time: 21:25 08/28 20:21 Order name: NT PRO-BNP; Complete Time: 21:25 08/28 20:21 Order name: PT-INR; Complete Time: 21:10 08/28 20:21 Order name: Troponin HS; Complete Time: 21:25 08/28 20:21 Order name: XRAY Chest (1 view); Complete Time: 21:30 08/28 21:30 Interpretation: Abnormal. 08/28 21:48 Order name: CT Chest For PE Angio; Complete Time: 22:46 08/28 20:21 Order name: EKG; Complete Time: 20:22 08/28 20:21 Order name: Cardiac monitoring; Complete Time: 20:39 08/28 20:21 Order name: EKG - Nurse/Tech; Complete Time: 20:40 08/28 20:21 Order name: IV Saline Lock; Complete Time: 20:40 08/28 20:21 Order name: Labs collected and sent; Complete Time: 20:40 08/28 20:21 Order name: O2 Per Protocol; Complete Time: 20:40 08/28 20:21 Order name: O2 Sat Monitoring; Complete Time: 20:40 gb1 Administered Medications: No medications were administered Disposition: 23:11 Chart complete. gb1 Disposition Summary: 08/28/23 23:11 Discharge Ordered Notes: Location: Home gb1 Problem: new gb1 Symptoms: are unchanged gb1 Condition: Stable gb1 Diagnosis - Chest pain on breathing gb1 Followup: gb1 - With: Private Physician - When: - Reason: Re-evaluation by your physician Discharge Instructions: - Discharge Summary Sheet gb1 - Nonspecific Chest Pain, Adult gb1 Forms: - Medication Reconciliation Form gb1 - Thank You Letter gb1 - Antibiotic Education gb1 - Prescription Opioid Use gb1 - Patient Portal Instructions gb1 - Leadership Thank You Letter gb1 Signatures: Dispatcher [employer] Marisol Tobar RN RN cm10 Zackary, Karyn, MD MD gb1 Octavio Carrera tl4 Corrections: (The following items were deleted from the chart) 23:07 23:05 ED course: 53-year-old male here with chest pain and shortness of breath gb1 over the left anterior chest wall. He is also stating that its sharp in nature with radiation to the right side earlier today. He denies any syncope or fever or chills. He has a history of an aortic valve replacement and mitral valve replacement and is also had a history of hypertension. He is no longer a smoker and is not a diabetic. He takes metoprolol. His cpht of record is Dr. Page. He is currently taking chronic anticoagulation for his valves.. gb1
--- NOTE | 2023-08-28 23:11 | ER ---
Nurse's Notes [facility] Name: Ryne Phillips Age: 53 yrs Sex: Male : 1970 Arrival Date: 08/28/2023 Time: 20:00 Bed 15 Private MD: Diagnosis: Chest pain on breathing Presentation: 08/28 20:09 Chief complaint: Patient states: Left sided chest pain onset today. Pt states that the cm10 pain began on his right side and it is now on his left side. Pt states that the pain radiates to his neck. Coronavirus screen: Vaccine status: Patient reports receiving the 2nd dose of the covid vaccine. Client denies travel out of the [place] in the last 14 days. Ebola Screen: Patient denies travel to an Ebola-affected area in the 21 days before illness onset. No symptoms or risks identified at this time. Initial Sepsis Screen: Does the patient meet any 2 criteria? No. Patient's initial sepsis screen is negative. Does the patient have a suspected source of infection? No. Patient's initial sepsis screen is negative. Risk Assessment: Do you want to hurt yourself or someone else? Patient reports no desire to harm self or others. Onset of symptoms was August 28, 2023. 20:09 Method Of Arrival: Ambulatory cm10 20:09 Acuity: ABBEY 2 cm10 Historical: - Allergies: 20:08 No Known Allergies; cm10 - Home Meds: 20:10 warfarin 5 mg Oral tab once daily [Active]; metoprolol tartrate 25 mg Oral tab once cm10 daily [Active]; 20:37 aspirin 81 mg Oral tablet,chewable 1 tab daily [Active]; tl4 - PMHx: 20:08 aortic valve replacement; mitral valve replacement; cm10 20:10 Hypertensive disorder; cm10 - Immunization history:: Adult Immunizations up to date. - Social history:: Smoking status: Patient denies any tobacco usage or history of. Screenin:35 [facility] ED Fall Risk Assessment (Adult) History of falling in the last 3 months, tl4 including since admission No falls in past 3 months (0 pts) Confusion or Disorientation No (0 pts) Intoxicated or Sedated No (0 pts) Impaired Gait No (0 pts) Mobility Assist Device Used No (0 pt) Altered Elimination No (0 pt) Score/Fall Risk Level 0 - 2 = Low Risk Oriented to surroundings, Maintained a safe environment, Educated pt \T\ family on fall prevention, incl call for assistance when getting out of bed, Assessed \T\ reinforced patient's understanding of fall precautions, Provided non-skid footwear. Abuse screen: Denies threats or abuse. Denies injuries from another. Nutritional screening: No deficits noted. Tuberculosis screening: No symptoms or risk factors identified. Assessment: 20:33 General: Appears in no apparent distress. Behavior is calm, cooperative. Pain: tl4 Complains of pain in chest Pain does not radiate. Pain began suddenly, 2-3 days ago. Neuro: No deficits noted. Cardiovascular: Reports chest pain, Denies diaphoresis, fatigue, lightheadedness, nausea, palpitations, shortness of breath, syncope, vomiting, Rhythm is sinus rhythm. Respiratory: Reports cough that is dry, Denies shortness of breath. GI: No deficits noted. No signs and/or symptoms were reported involving the gastrointestinal system. : No deficits noted. No signs and/or symptoms were reported regarding the genitourinary system. EENT: No signs and/or symptoms were reported regarding the EENT system. Vital Signs: 20:09 BP 141 / 84; Pulse 72; Resp 16; Temp 96.6(TE); Pulse Ox 99% ; Weight 78.02 kg; Height 5 cm10 ft. 4 in. ; Pain 8/10; 20:34 BP 129 / 83; Pulse 71; Resp 16; Pulse Ox 98% on R/A; Pain 6/10; tl4 20:09 Body Mass Index 29.52 (78.02 kg, 162.56 cm) cm10 20:09 Pain Scale: Adult cm10 20:34 Pain Scale: Adult tl4 Vitals: 20:34 Cardiac Rhythm Assessment Regular Sinus rhythm. tl4 [place] Coma Score: 20:34 Eye Response: spontaneous(4). Motor Response: obeys commands(6). Verbal Response: tl4 oriented(5). Total: 15. ED Course: 20:04 Patient arrived in ED. gm2 20:10 Karyn Raymundo MD is Attending Physician. gb1 20:10 Triage completed. cm10 20:11 Arm band placed on Patient placed in an exam room, on a stretcher. cm10 20:15 Octavio Carrera is Primary Nurse. tl4 20:36 Patient has correct armband on for positive identification. Placed in gown. Bed in low tl4 position. Call light in reach. Side rails up X2. Adult w/ patient. Provided Education on: ED process. Client placed on continuous cardiac and pulse oximetry monitoring. NIBP monitoring applied. asphalt smoother on. Door closed. Noise minimized. Moved to private room. Warm blanket given. 20:36 No provider procedures requiring assistance completed. Patient maintains SpO2 tl4 saturation greater than 95% on room air. 20:36 Inserted saline lock: 20 gauge in right antecubital area, using aseptic technique. tl4 Blood collected. 20:39 XRAY Chest (1 view) Sent. tl4 20:40 Basic Metabolic Panel Sent. tl4 20:40 CBC with Diff Sent. tl4 20:40 LFT's Sent. tl4 20:40 Magnesium Sent. tl4 20:40 NT PRO-BNP Sent. tl4 20:40 PT-INR Sent. tl4 20:40 Troponin HS Sent. tl4 20:42 XRAY Chest (1 view) In Process Unspecified. EDMS 22:12 CT Chest For PE Angio In Process Unspecified. EDMS 23:55 IV discontinued, intact, bleeding controlled, No redness/swelling at site. Pressure ap3 dressing applied. Administered Medications: No medications were administered Medication: 20:35 VIS not applicable for this client. tl4 Outcome: 23:11 Discharge ordered by . gb1 23:55 Discharged to home ambulatory, with family, ap3 23:55 Condition: good 23:55 Discharge instructions given to patient, Instructed on discharge instructions, follow up and referral plans. Demonstrated understanding of instructions, follow-up care, 23:55 Patient left the ED. ap3 Signatures: Dispatcher [employer] EDMS Tessy Salcedo RN RN ap3 Marisol Araujo RN RN cm10 Karyn Raymundo MD MD gb1 Adwoa Montgomery gm2 LogOctavio de la rosa tl4
[2023-08-29 06:54] VITALS: BP 129/83; TEMP 96.6; O2SAT 98
--- NOTE | 2023-08-30 13:26 | EKG ---
Test Date: 2023-08-28 Test Time: 20:20:18 Occupational Therapy Teacher: TL MEASUREMENT RESULTS: Intervals: Rate: 79 SC: 160 QRSD: 104 QT: 396 QTc: 454 [place]: P: 63 SC: 160 QRS: 38 T: 47 INTERPRETIVE STATEMENTS: Sinus rhythm with premature supraventricular complexes Nonspecific T wave abnormality Abnormal ECG Compared to ECG 07/03/2018 18:37:51 Atrial premature complex(es) now present Possible ischemia no longer present T-wave abnormality still present Electronically Signed On 08-30-23 13:23:57 [employer] by Guillermo Valles
== END ==
LOC: ER 20:00
DX: R07.1 Chest pain on breathing (principal); I10 Essential (primary) hypertension; Z79.01 Long term (current) use of anticoagulants; Z95.2 Presence of prosthetic heart valve; Z79.82 Long term (current) use of aspirin
CPT/HCPCS: 93005; 85025; 80048; 36415; 83735; 85610; 80076; 84484; 83880; 71275; 71045; 99285; Q9967

== ENCOUNTER 2024-12-27 14:29 | Emergency (ER) | payer OTHER ==
--- OUTSIDE RECORDS SUMMARY | 2024-12-27 14:34 | XMS REPORT | Continuity of Care Document ---
Author Name Unknown Address [address] [place] [address] [facility] Address 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 Attending Clinician + [phone] Jovani Newell Attending Clinician Unavailable Doctor Unassigned, [employer] Attending Clinician U WILL Sheffield Attending Clinician Unavail able DEVIN HARRY Attending Clinician Unavailable Merritt Aaron Attending Clinician Unavailneha PHILLIP, SENDDOLORES K.H. Attending Clinician Unavailjazlyn Phillip MD, Sendil K.H. Attending Clinician + [phone] FELICITAS PALMA Admitting Clinician Unavailable Felicitas Palma MD Admitting Clinician [phone] [place] MOREJON Admitting Clinician Unavailable Merritt Aaron Admitting Clinician Unavailneha e Physician, No Primary or Family Admitting Clinic gregor Unavailable Payers Payer Name Policy Type Policy Number Effective Date Expirati on Date Source [facility] 53 [id number] [facility] ([facility]) C1 [id number] 2019 00:00:00 [facility] ([facility]) [id number] 2019 00:00:00 [facility] Problems Condition Name Condition Details Condition Category Status Onset Date Resolution Date Last Treatment Date Treating Clinician Comments Source Chest pain, unspecifie d type Chest pain, unspecifie d type Disease Active 20 00:00: 00 [facility] Chronic anticoagul ation Chronic anticoagul ation Disease Active 02-28 00:00: 00 [facility] Essential hypertensi on Essential hypertensi on Disease Active 09-08 00:00: 00 [facility] shelter current use of anticoagul ant 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 current use of anticoagul ant Disease Active 09-08 00:00: 00 [facility] S/P mitral valve replacemen t with metallic valve S/P mitral valve replacemen t with metallic valve Disease Active 09-08 00:00: 00 [facility] S/P aortic valve replacemen t with metallic valve S/P aortic valve replacemen t with metallic valve Disease Active 09-08 00:00: 00 [facility] History of rheumatic fever History of rheumatic fever Disease Active 09-08 00:00: 00 [facility] ARRIAGA (dyspnea on exertion) ARRIAGA (dyspnea on exertion) Disease Active 09-08 00:00: 00 [facility] Atypical chest pain Atypical chest pain Disease Active 09-08 00:00: 00 [facility] S/P mitral valve replacemen t with metallic valve S/P mitral valve replacemen t with metallic valve Disease Active 09-08 00:00: 00 [facility] Decreased hearing Decreased hearing of both ears Problem [facility] [id number] 100 H/O aortic valve replacemen t Problem [facility] [id number] Therapeuti c drug monitoring Problem [facility] [id number] Paresthesi a of right leg Problem [facility] [id number] Arm paresthesi a, right Problem [facility] [id number] 109 H/O mitral valve replacemen t Problem [facility] [id number] CVD (cardiovas cular disease) Problem [facility] [id number] Lipid metabolism abnormalit y Problem [facility] [id number] Cough Problem [facility] [id number] Eye muscle twitches Problem [facility] Allergies, Adverse Reactions, Alerts Allergy Name Allergy Type Status Severity Reaction(s) Onset Date Inactive Date Treating Clinician Comments Source No Known Allergie s DA Active U 02-13 00:00: 00 [facility] No Known Allergie s DA Active U 2014-08 00:00: 00 [facility] No Known Allergie s DA Active U 2014-08 00:00: 00 [facility] NO KNOWN ALLERGIE S Drug Class Active [facility] Social History Social Habit Start Date Stop Date Quantity Comments Source History of Tobacco Use [facility] Sex Assigned At [facility] Sexual orientation U [facility] History of Social function 2019-02-25 00:00:00 2019-02-25 00:00:00 [facility] Alcohol intake 2019-01-09 00:00:00 2019-01-09 00:00:00 .14 /d [facility] Alcoholic beverage intake 2019-01-09 00:00:00 2019-01-09 00:00:00 .14 /d [facility] Cigarettes smoked current (pack per day) - Reported 2016-09-07 00:00:00 2016-09-07 00:00:00 [facility] Cigarette pack-years 2016-09-07 00:00:00 2016-09-07 00:00:00 [facility] Tobacco use and exposure 2016-09-07 00:00:00 2016-09-07 00:00:00 Smokeless tobacco non-user [facility] Smoking Status Start Date Stop Date Source Never Smoker [facility] Former Smoker 2022-01-26 00:00:00 2022-01-26 00:00:00 [facility] Medications Ordered Medication Name Filled Medication Name Start Date Stop Date Current Medication? Ordering Clinician Indication Dosage Frequency Signature (SIG) Comments Components Source enoxaparin (LOVENOX) injection 40 mg 10-09 15:00: 00 [facility] on[facility]ansetron (ZOFRAN (PF)) injection 4 mg 10-09 02:52: 40 Yes 4mg [facility] morphine (2 mg/mL) injection 2 mg 10-09 02:52: 33 10-10 02:51 :33 Yes 2mg [facility] traMADoL (ULTRAM) tablet 50 mg 10-09 02:52: 30 10-11 02:51 :30 Yes 50mg [facility] acetaminoph en (TYLENOL) tablet 650 mg 10-09 02:52: 28 Yes 650mg [facility] aspirin tablet 325 mg 10-09 02:45: 00 10-09 02:41 :00 No 325mg 325 mg, Oral, ONCE, 1 dose, On Sat10/08/24 at 2044, STAT [facility] NaCl 0.9% (NS) bolus infusion 500 mL 10-09 02:45: 00 10-09 03:45 :00 No 500mL at 999 mL/hr, 500 mL, IV Infusion, ONCE, 1 dose, On Nicci 10/08/24 at 2045, STAT [facility] warfarin 5 mg tablet 08-31 00:00: 00 Yes [id number] TAKE ONE TABLET BY MOUTH EVERY EVENING [facility] LISINOPRIL 5 mg tablet 2018-08 00:00: 00 Yes [id number] TAKE ONE TABLET BY MOUTH DAILY [facility] DIGOXIN 125 mcg (0.125 mg) tablet 2018-08 00:00: 00 Yes [id number] TAKE ONE TABLET BY MOUTH DAILY [facility] DIGOXIN 125 mcg (0.125 mg) tablet 2018-08 00:00: 00 Yes [id number] TAKE ONE TABLET BY MOUTH DAILY [facility] WARFARIN 5 mg tablet 02-11 00:00: 00 Yes TAKE ONE TABLET BY MOUTH EVERY EVENING [facility] warfarin 5 mg tablet 10-13 00:00: 00 Yes 5mg Take 1 tablet by mouth every evening. 5 mg 4 days/week, 7.5 mg 3 days/week [facility] aspirin 81 mg chewable tablet 04-15 16:45: 22 Yes 81mg Take 81 mg by mouth daily. [facility] fluticasone 50 mcg/actuati on nasal spray 04-11 00:00: 00 Yes [id number] 1{spray } Use 1 [place] in each nostril 2 (two) times daily. [facility] benzonatate (TESSALON PERLES) 100 mg capsule 04-11 00:00: 00 Yes [id number] 100mg Take 1 capsule by mouth 3 (three) times daily. [facility] lisinopril 5 mg tablet 12-05 00:00: 00 Yes [id number] 5mg Take 1 tablet by mouth daily. [facility] Aspirin Adult Low Dose 81 MG Aspirin Adult Low Dose 81 MG No 1{table t} QD Aspirin Adult Low Dose 81 MG Metoprolol Tartrate 25 MG Metoprolol Tartrate 25 MG No 1{table t_with_ food} QD Metoprolol Tartrate 25 MG Coumadin 5 MG Coumadin 5 MG No 1{table t} QD Coumadin 5 MG Warfarin Sodium 7.5 MG Warfarin Sodium 7.5 MG No 1{table t} QD Warfarin Sodium 7.5 MG Immunizations Ordered Immunization Name Filled Immunization Name Date Status Comments Source SARS-COV-2 COVID-19 MODERNA 12+ YRS VACCINE 2021-01-06 00:00:00 Completed [facility] SARS-COV-2 COVID-19 MODERNA VACCINE 2021-01-06 00:00:00 Completed [facility] SARS-COV-2 COVID-19 MODERNA 12+ YRS VACCINE 2020-11-22 00:00:00 Completed [facility] SARS-COV-2 COVID-19 MODERNA VACCINE 2020-11-22 00:00:00 Completed [facility] Influenza Virus Vaccine Quad ID 18-64 YRS 2016-09-10 00:00:00 Completed [facility] Influenza Virus Vaccine Quad ID 18-64 YRS 2016-09-10 00:00:00 Completed Vital Signs Vital Name Observation Time Observation Value Comments S ource Systolic blood pressure 2024-10-09 05:00:00 143 mm[Hg] [facility] Diastolic blood pressure 2024-10-09 05:00:00 88 mm[Hg] [facility] Heart rate 2024-10-09 05:00:00 63 /min [facility] Body temperature 2024-10-09 05:00:00 36.72 Carmita [facility] Respiratory rate 2024-10-09 05:00:00 12 /min [facility] Oxygen saturation in Arterial blood by Pulse oximetry 2024-10-09 05:00:00 97 /min [facility] Body height 2024-10-09 01:04:00 160 cm [facility] Body weight 2024-10-09 01:04:00 77.111 kg [facility] BMI 2024-10-09 01:04:00 30.11 kg/m2 [facility] blood pressure systolic 2023-08-22 09:40:00 138 mm[Hg] Common [facility] blood pressure diastolic 2023-08-22 09:40:00 72 mm[Hg] [facility] height 2023-08-22 09:40:00 63 [in_i] Commo n [facility] weight 2023-08-22 09:40:00 171.1 [lb_av] Co on [facility] temperature 2023-08-22 09:40:00 98.1 [degF] Com [facility] bmi 2023-08-22 09:40:00 30.31 kg/m2 Comm on [facility] oximetry 2023-08-22 09:40:00 97 % Commo n [facility] respiratory rate 2023-08-22 09:40:00 16 /min Common [facility] height 2021-11-02 13:40:00 63 [in_i] Commo n [facility] weight 2021-11-02 13:40:00 167.8 [lb_av] Co mmon [facility] temperature 2021-11-02 13:40:00 98.1 [degF] Com [facility] bmi 2021-11-02 13:40:00 29.72 kg/m2 Comm on [facility] oximetry 2021-11-02 13:40:00 98 % Commo n [facility] respiratory rate 2021-11-02 13:40:00 16 /min [facility] blood pressure systolic 2021-11-02 13:40:00 126 mm[Hg] [facility] blood pressure diastolic 2021-11-02 13:40:00 78 mm[Hg] [facility] height 2021-09-19 16:00:00 63 [in_i] Commo n [facility] weight 2021-09-19 16:00:00 169 [lb_av] Comm on [facility] temperature 2021-09-19 16:00:00 98.0 [degF] Com mon [facility] bmi 2021-09-19 16:00:00 29.93 kg/m2 Comm on [facility] oximetry 2021-09-19 16:00:00 98 % Commo n [facility] respiratory rate 2021-09-19 16:00:00 16 /min Common [facility] blood pressure systolic 2021-09-19 16:00:00 135 mm[Hg] [facility] blood pressure diastolic 2021-09-19 16:00:00 56 mm[Hg] [facility] height 2021-06-20 14:40:00 63 [in_i] Commo n [facility] weight 2021-06-20 14:40:00 169 [lb_av] Comm on [facility] temperature 2021-06-20 14:40:00 97.5 [degF] Com mon [facility] bmi 2021-06-20 14:40:00 29.93 kg/m2 Comm on [facility] oximetry 2021-06-20 14:40:00 98 % Commo n [facility] respiratory rate 2021-06-20 14:40:00 16 /min [facility] blood pressure systolic 2021-06-20 14:40:00 118 mm[Hg] Common [facility] blood pressure diastolic 2021-06-20 14:40:00 70 mm[Hg] [facility] height 2021-04-20 08:20:00 63 [in_i] Commo n [facility] weight 2021-04-20 08:20:00 173 [lb_av] Comm on [facility] temperature 2021-04-20 08:20:00 97.8 [degF] Com mon [facility] bmi 2021-04-20 08:20:00 30.64 kg/m2 Comm on [facility] oximetry 2021-04-20 08:20:00 98 % Commo n [facility] respiratory rate 2021-04-20 08:20:00 16 /min [facility] blood pressure systolic 2021-04-20 08:20:00 107 mm[Hg] [facility] blood pressure diastolic 2021-04-20 08:20:00 60 mm[Hg] [facility] Procedures Procedure Date / Time Performed Performing Clinician Source TROPONIN I 2024-10-09 03:47:00 Lizzeth Sahni [facility] XR CHEST 1 VW 2024-10-09 02:07:54 Lizzeth Sahni [facility] TROPONIN I 2024-10-09 01:39:00 Lizzeth Sahni [facility] COMP. METABOLIC PANEL ([id number]) 2024-10-09 01:39:00 Lizzeth Sahni [facility] CBC WITH DIFF 2024-10-09 01:39:00 Lizzeth Sahni [facility] N-TERMINAL PRO-BNP 2024-10-09 01:39:00 Lizzeth Bean [facility] AUTHORIZATION FOR RELEASE OF PHI 2022-01-02 05:01:00 Doctor Unassigned, [employer] [facility] DME/SUPPLY JUSTIFICATION 2017-07-04 06:01:00 Doc tor Unassigned, [employer] [facility] CONSENT/REFUSAL FOR DIAGNOSIS AND TREATMENT 2017-06-28 13:51:46 Doctor Unassigned, [employer] [facility] ASSIGNMENT OF BENEFITS 2017-06-28 13:51:25 Docto r Unassigned, [employer] [facility] Encounters Start Date/Time End Date/Time Encounter Type Admission Type Attending Clinicians Care Facility Care Department Encounter ID Source 2024-03-27 09:17:00 Outpatient [place] Morejon [facility] [id number] [facility] 2023-11-29 08:27:01 Outpatient [place] Morjeon [facility] [id number] [facility] 2023-11-27 07:52:00 Outpatient [place]unnels[place] rodriguez STSTEPHANIELC STLMLC [id number] [facility] 2023-11-19 08:22:00 Outpatient [place] Morejon [facility] ST[facility] [id number] [facility] 2023-08-22 09:32:00 Outpatient [place] rodriguez STLMLC STLMLC [id number] [facility] 2023-08-21 13:58:00 Outpatient [place] Morejon [facility]LMLC ST[facility] [id number] [facility] 2023-01-15 11:06:01 Outpatient [place] Morejon STLMLC ST[facility] [id number] [facility] 2022-12-10 13:41:00 Outpatient [place] rodriguez [facility]LMLC STL[facility]C [id number] [facility] 2022-01-24 15:07:01 Outpatient [place] rodriguez [facility]MLC STL[facility]C [id number] [facility] 2022-01-11 09:59:00 Outpatient [place] Morejon [facility] ST[facility] [id number] [facility] 2022-01-09 16:53:01 Outpatient [place] rodriguez STLMLC STLMLC [id number] [facility] 2022-01-08 12:27:16 Outpatient [place] rodriguez STLMLC STLMLC [id number] [facility] 2021-11-01 13:03:01 Outpatient [place] rodriguez [facility]MLC STL[facility] [id number] [facility] 2021-09-28 13:50:02 Outpatient [place] rodriguez STLMLC STL[facility]C [id number] [facility] 2021-09-13 14:11:20 Outpatient [place], [place] [facility] [id number] [facility] 2021-09-13 12:38:02 Outpatient [place] Morejon [facility] [id number] [facility] 2021-09-13 12:21:36 Outpatient [place] Morejon [facility] [id number] [facility] 2021-09-13 11:34:17 Outpatient [facility] [id number] [facility] 2021-09-13 11:08:56 Outpatient Shaye Perdomo [facility] [id number] [facility] 2021-09-13 11:01:16 Outpatient Shaye Perdomo [facility] [id number] [facility] 2024-10-09 00:00:00 2024-10-09 09:38:16 Transition of Care Chantel Colon Chantel Yuli [address] [id number] [facility] 2024-10-08 19:09:00 2024-10-08 23:21:00 Outpatient RAKAN GIRON [facility] [id number] [facility] 2024-10-08 19:09:00 2024-10-08 23:21:00 Emergency VidalerLizzeth charles [facility] [id number] [facility] 2017-06-28 00:00:00 2024-10-03 03:33:48 Orders Only Elyse Phillip [facility] PROFESSIO [facility] ..[id number] [facility] 2024-03-06 00:00:00 2024-03-06 00:00:00 (TEL) STLMLC STLMLC [id number] [facility] 2024-01-29 00:00:00 2024-01-29 00:00:00 (TEL) STLMLC ST[facility]C [id number] [facility] 2023-11-21 00:00:00 2023-11-21 00:00:00 (TEL) STLMLC STL[facility]C [id number] [facility] 2023-08-22 00:00:00 2023-08-22 00:00:00 OFFICE VISIT ESTAB PT LEVEL 3 [facility] STL[facility]C [id number] [facility] 2023-02-21 08:00:00 2023-02-21 08:01:00 Outpatient Jovani Powell [facility] [id number] [facility] 2022-07-16 00:00:00 2022-07-16 00:00:00 (TEL) STLMLC STL[facility]C [id number] [facility] 2022-01-09 00:00:00 2022-01-09 00:00:00 (TEL) STLMLC STL[facility]C [id number] [facility] 2022-01-02 00:00:00 2022-01-02 00:00:00 Orders Only Doctor Unassigned, [employer] [place] [id number] [facility] 2021-11-02 00:00:00 2021-11-02 00:00:00 OFFICE VISIT EST PT LEVEL 3 STLMLC STL[facility]C [id number] [facility] 2021-10-04 00:00:00 2021-10-04 00:00:00 (TEL) STLMLC STLMLC [id number] [facility] 2021-09-19 00:00:00 2021-09-19 00:00:00 OFFICE VISIT EST PT LEVEL 3 [facility]LMLC STL[facility]C [id number] [facility] 2021-06-20 00:00:00 2021-06-20 00:00:00 OFFICE VISIT ESTAB PT LEVEL 3 [facility]LMLC STL[facility]C [id number] [facility] 2021-04-27 00:00:00 2021-04-27 00:00:00 (TEL) STLMLC STLMLC [id number] [facility] 2021-04-20 00:00:00 2021-04-20 00:00:00 OFFICE VISIT EST PT LEVEL 3 [facility]LMLC STL[facility]C [id number] [facility] 2021-01-06 08:00:00 2021-01-06 08:00:00 Outpatient WILL CHESTER [facility] [id number] [facility] 2020-12-20 16:10:00 2020-12-20 16:10:00 Outpatient DEVIN MACDONALD [facility] [id number] [facility] 2020-11-22 17:50:00 2020-11-22 17:50:00 Outpatient DEVIN MACDONALD [facility] [id number] [facility] 2020-11-17 00:00:00 2020-11-17 00:00:00 Outpatient [facility]LMLC [facility] [id number] [facility] 2020-10-26 00:00:00 2020-10-26 00:00:00 Outpatient [facility]LMLC ST[facility]C [id number] [facility] 2020-08-30 15:00:00 2020-08-30 15:00:00 Outpatient Merritt Aaron [facility] [id number] [facility] 2020-07-25 09:30:00 2020-07-25 09:30:00 Outpatient Merritt Aaron [facility] NUCM [id number] [facility] 2020-02-11 15:30:00 2020-02-11 15:30:00 Outpatient ELYSE NUNEZ [facility] [id number] [facility] 2019-11-05 08:00:00 2019-11-05 08:00:00 Outpatient Merritt Aaron SUGL [id number] [facility] 2019-10-30 09:00:00 2019-10-30 09:00:00 Outpatient Merritt Aaron SUGL [id number] [facility] 2019-10-07 16:20:00 2019-10-07 16:20:00 Outpatient [facility] [id number] [facility] 2019-10-06 00:00:00 2019-10-06 00:00:00 Telephone Elyse Phillip [facility] [id number] 2019-10-01 00:00:00 2019-10-01 00:00:00 Orders Only Doctor Unassigned, [employer] [place] [id number] 2019-09-03 16:00:00 2019-09-03 16:00:00 Outpatient [facility] [id number] [facility] Results Test Description Test Time Test Comments Results Result Co mments Source [facility] [id number] 02:29:39* Test Item Value Reference Range Interpretation Comme nts TROPONIN I (test code = 7733707903) 0.011 ng/mL <=0.034 JOSE (test code = JOSE) Reference (Normal) Range (defined by the 99th percentile reference limit): <= 0.034 ng/mL Note: Cardiac troponin begins to rise 3-4 hours after the onset of ischemia. Repeat in 4-6 hours if the sample was drawn within 3-4 hours of the onset of the symptom and found normal. Diagnosis of myocardial injury is made with acute changes in cTn concentrations with at least one serial sample above the 99th percentile upper reference limit (URL), taken together with the patient's clinical presentation. Biotin has been reported to cause a negative bias, interpret results relative to patient's use of biotin. Lab Interpretation (test code = 71171-8) Normal [facility] [id number] 02:27:02* Test Item Value Reference Range Interpretation Comme nts NT-proBNP (test code = 67739-6) 91 pg/mL <=125 Lab Interpretation (test cod e = 20205-5) Normal [facility] ([id number])2024-10-09 02:18:42* Test Item Value Reference Range Interpretation Comme nts NA (test code = 6288347253) 137 mmol/L 135-145 K (test code = 2149030782) 4.3 mmol/L 3.5-5.0 CL (test code = 3761714372) 104 mmol/L 98-108 CO2 TOTAL (test code = 1036333141) 28 mmol/L 23-31 AGAP (test code = 8257871771) 5 2-16 BUN (test code = 8031787971) 18 mg/dL 7-23 GLUCOSE (test code = 0793141089) 108 mg/dL 70-110 CREATININE (test code = 2160-0) 0.71 mg/dL 0.60-1.25 TOTAL BILI (test code = 9319278075) 0.8 mg/dL 0.1-1.1 CALCIUM (test code = 3876801111) 8.6 mg/dL 8.6-10.6 T PROTEIN (test code = 3520432387) 7.4 g/dL 6.3-8.2 ALBUMIN (test code = 0008430734) 4.2 g/dL 3.5-5.0 ALK PHOS (test code = 4629611684) 117 U/L 34-122 ALTv (test code = 1742-6) 31 U/L 5-50 AST(SGOT) (test code = 8913054423) 53 U/L 13-40 H eGFR (test code = 40390-5) 108.4 mL/min/1.73m2 CKD-EPI eGFR (2020). Assuming creatinine has been stable day-to-day for at least three months, the eGFR indicates Category G1 (>= 90 mL/min/1.73 m2) Lab Interpretation (test code = 65127-0) Abnormal [facility] 1 [id number] 02:10:25EXAM: XR CHEST 1 VW COMPARISON: None. HISTORY: chest pain ? FINDINGS: Sternotomy wires are seen. Prosthetic heart valves noted. No focalconsolidation is identified. No pleural effusion or pneumothorax is seen.The cardiomediastinal silhouette is unremarkable.No acute osseous abnormalities.[facility] Cbc with [id number] 01:59:15* Test Item Value Reference Range Interpretation Comme nts WBC (test code = 6690-2) 7.60 4.20-10.70 RBC (test code = 789-8) 5.02 4.26-5.52 HGB (test code = 718-7) 14.3 g/dL 12.2-16.4 HCT (test code = 4544-3) 41.8 % 38.4-49.3 MCV (test code = 787-2) 83.3 fL 81.7-95.6 MCH (test code = 785-6) 28.5 pg 26.1-32.7 MCHC (test code = 786-4) 34.2 g/dL 31.2-35.0 RDW-SD (test code = 18671-7) 41.7 fL 38.5-51.6 RDW-CV (test code = 788-0) 13.8 % 12.1-15.4 PLT (test code = 777-3) 293 150-328 MPV (test code = 29418-4) 9.1 fL 9.8-13.0 L NRBC/100 WBC (test code = 2395520368) 0.0 0.0-10.0 NRBC x10^3 (test code = 7923453529) See_Comment [Automated Soundl.lya ge] The system which generated this result transmitted reference range: 10*3/?L. The reference range was not used to interpret this result as normal/abnormal. GRAN MAT (NEUT) % (test code = 770-8) 55.1 % IMM GRAN % (test code = 1598175797) 0.50 % LYMPH % (test code = 736-9) 28.9 % MONO % (test code = 5905-5) 9.9 % EOS % (test code = 713-8) 4.7 % BASO % (test code = 706-2) 0.9 % GRAN MAT x10^3(ANC) (test code = 2135907824) 4.18 10*3/uL 1.99-6.95 IMM GRAN x10^3 (test code = 6123507638) 0.04 10*3/uL 0.00-0.06 LYMPH x10^3 (test code = 731-0) 2.20 10*3/uL 1.09-3.23 MONO x10^3 (test code = 742-7) 0.75 10*3/uL 0.36-1.02 EOS x10^3 (test code = 711-2) 0.36 10*3/uL 0.06-0.53 BASO x10^3 (test code = 704-7) 0.07 10*3/uL 0.01-0.09 Lab Interpretation (test code = 68059-3) Abnormal [facility] METABOLIC [id number] 16:56:00* Test Item Value Reference Range Interpretation Comme nts SODIUM (test code = NA) 138 mmol/L 137-145 N POTASSIUM (test code = K) 4.2 mmol/L 3.4-5.0 N CHLORIDE (test code = CL) 108 mmol/L 98-107 H CARBON DIOXIDE (test code = CO2) 24 mmol/L 22-30 N ANION GAP (test code = GAP) 10 GLUCOSE (test code = GLU) 136 mg/dL 74-106 H BLOOD UREA NITROGEN (test code = BUN) 14 mg/dL 9-20 N GLOMERULAR FILTRATION RATE (test code = GFR) 110 mL/min The Glomerular Filtration Rate is a calculated parameterbased on serum Creatinine, patient age and sex. GFR valuesless than 60 mL/min/1.73 square meters are indicative ofChronic Kidney Disease. Values less than 15 mL/min/1.73square meters indicate Kidney failure. The calculation forGFR is based on the CKD-EPI (2020) calculation. This formulais race indifferent and is the recommended formula for GFRby the National Kidney Foundation for Adults.The GFR will not calculate if the sex is unknown or if thepatient's age is <18 years. CREATININE (test code = CREAT) 0.7 mg/dL 0.7-1.3 N CALCIUM (test code = CA) 7.9 mg/dL 8.4-10.2 L INDEX HEMOLYSIS (test code = HEMINDEX) 23 Index/DL 0-100 N [id number] 16:56:00* Test Item Value Reference Range Interpretation Comme nts MAGNESIUM (test code = MAG) 1.9 mg/dL 1.6-2.3 N PROTHROMBIN [id number] 16:34:00* Test Item Value Reference Range Interpretation Comme nts PROTHROMBIN TIME PATIENT (test code = PTP) [...] Food and Drug Administrationrecommen dations. THROMBOPLASTIN TIME [id number] 16:34:00* Test Item Value Reference Range Interpretation Comme [facility] THROMBOPLASTIN TIME PARTIAL (test code = PTT) 53.2 SECONDS 23.4-37.0 H Therapeutic Rang e for Heparin EFFECTIVE 02/25/13 Heparin IU/mL aPTT Seconds0.3 64.30.7 88.8 CBC W/AUTO [id number] 16:27:00* Test Item Value Reference Range Interpretation Comme nts WHITE BLOOD CELL (test code = WBC) [...] = BA#) 0.05 x10 3/uL 0.0-0.1 N BASIC METABOLIC [id number] 07:47:00* Test Item Value Reference Range Interpretation Comme nts SODIUM (test code = NA) 138 MMOL/L 137-145 N POTASSIUM (test code = K) 4.3 MMOL/L 3.5-5.1 N CHLORIDE (test code = CL) 102 MMOL/L 98-107 N CARBON DIOXIDE (test code = CO2) 29 MMOL/L 22-30 N GLUCOSE (test code = GLU) 99 MG/DL 74-106 N BLOOD UREA NITROGEN (test code = BUN) 16 MG/DL 9-20 N GLOMERULAR FILTRATION RATE (test code = GFR) > 60 Reporting units: ml/min/1.73 m2 (Modified MDRD Formula)Reference Range: > or = 60 ml/min/1.73 m2 CREATININE (test code = CREAT) 0.70 MG/DL 0.66-1.25 N CALCIUM (test code = CA) 8.5 MG/DL 8.4-10.2 N [id number] 07:47:00* Test Item Value Reference Range Interpretation Comme nts MAGNESIUM (test code = MAG) 2.0 MG/DL 1.6-2.3 N BASIC METABOLIC [id number] 07:46:00* Test Item Value Reference Range Interpretation Comme nts SODIUM (test code = NA) 138 MMOL/L 137-145 N POTASSIUM (test code = K) 4.3 MMOL/L 3.5-5.1 N CHLORIDE (test code = CL) 102 MMOL/L 98-107 N CARBON DIOXIDE (test code = CO2) 29 MMOL/L 22-30 N GLUCOSE (test code = GLU) MG/DL 74-106 BLOOD UREA NITROGEN (test code = BUN) 16 MG/DL 9-20 N GLOMERULAR FILTRATION RATE (test code = GFR) > 60 Reporting units: ml/min/1.73 m2 (Modified MDRD Formula)Reference Range: > or = 60 ml/min/1.73 m2 CREATININE (test code = CREAT) 0.70 MG/DL 0.66-1.25 N CALCIUM (test code = CA) MG/DL 8.7-9.7 [id number] 07:46:00* Test Item Value Reference Range Interpretation Comme nts MAGNESIUM (test code = MAG) MG/DL 1.6-2.3 BASIC METABOLIC [id number] 07:43:00* Test Item Value Reference Range Interpretation Comme nts SODIUM (test code = NA) 138 MMOL/L 137-145 N POTASSIUM (test code = K) 4.3 MMOL/L 3.5-5.1 N CHLORIDE (test code = CL) 102 MMOL/L 98-107 N CARBON DIOXIDE (test code = CO2) MMOL/L 22-30 GLUCOSE (test code = GLU) MG/DL 74-106 BLOOD UREA NITROGEN (test co de = BUN) MG/DL 9-20 GLOMERULAR FILTRATION RATE ( test code = GFR) CREATININE (test code = CREAT) MG/DL 0.66-1.25 CALCIUM (test code = CA) MG/DL 8.7-9.7 [id number] 07:43:00* Test Item Value Reference Range Interpretation Comme [facility] MAGNESIUM (test code = MAG) MG/DL 1.6-2.3 PROTHROMBIN [id number] 07:09:00* Test Item Value Reference Range Interpretation Comme [facility] PROTHROMBIN TIME PATIENT (test code = PTP) 22.1 SECONDS 9.4-12.5 H INTERNATIONAL NORMAL RATIO (test code = INR) 2.0 The INR is to be used only for monitoring oral anticoagulanttherap y. INDICATION INR VALUE -------1. Prophylaxis, deep venous thrombosis, including high risk surgery. 2.0 - 3.0 2. Prophylaxis, deep venous thrombosis, hip surgery, treatment for deep venous thrombosis or pulmonary prevention of systemic embolism in patients with valvular heart disease, atrial fibrillation, tissue heart valve, or acute myocardial infarction. 2.0 - 3.0 3. Mechanical prosthesis heart valves, recurrent systemic embolism. 3.0 - 4.5 PTT [id number] 07:09:00* Test Item Value Reference Range Interpretation [facility] PTT ACTIVATED (test code = APTT) 44.2 SECONDS 25.1-36.5 H CBC W/AUTO [id number] 06:56:00* Test Item Value Reference Range Interpretation Comme [facility] WHITE BLOOD CELL (test code = WBC) 6.8 K/MM3 3.8-9.8 N RED BLOOD CELL (test code = RBC) 5.43 M/MM3 3.95-5.67 N HEMOGLOBIN (test code = HGB) 15.1 G/DL 12.4-16.7 N HEMATOCRIT (test code = HCT) 46.5 % 35.9-49.5 N MEAN CELL VOLUME (test code = MCV) 86 fL 81.7-96.1 N MEAN CELL HGB (test code = MCH) 27.8 pg 27.6-33.2 N MEAN CELL HGB CONCETRATION (test code = MCHC) 32.5 % 32.9-35.5 L RED CELL DISTRIBUTION WIDTH (test code = RDW) 13.7 % 12.1-15.2 N PLATELET COUNT (test code = PLT) 306 K/MM3 129-368 N MEAN PLATELET VOLUME (test c ode = MPV) 9.7 fl 7.4-10.4 N NEUTROPHIL % (test code = NT%) 57.2 % 43-75 N IMMATURE GRANULOCYTE % (test code = IG%) 0.4 % 0.0-2.0 N LYMPHOCYTE % (test code = LY%) 28.3 % 14-44 N MONOCYTE % (test code = MO%) 8.9 % 4-13 N EOSINOPHIL % (test code = EO%) 4.3 % 0-6 N BASOPHIL % (test code = BA%) 0.9 % 0-2 N NUCLEATED RBC % (test code = NRBC%) 0.0 % 0-1.0 N NEUTROPHIL # (test code = NT#) 3.86 K/mm3 2.0-7.6 N IMMATURE GRANULOCYTE # (test code = IG#) 0.03 x10 3/uL 0-0.03 N LYMPHOCYTE # (test code = LY#) 1.91 K/mm3 1.0-3.8 N MONOCYTE # (test code = MO#) 0.60 K/mm3 0.1-0.8 N EOSINOPHIL # (test code = EO#) 0.29 K/mm3 0.0-0.2 H BASOPHIL # (test code = BA#) 0.06 K/mm3 0.0-0.2 N NUCLEATED RBC # (test code = NRBC#) 0.00 K/mm3 0.0-0.1 N COVID 19 Asymptomatic IH [id number] 15:10:00* Test Item Value Reference Range Interpretation Comme nts COVID 19 Asymptomatic IH AG (test code = COVNONPUIAG) NEGATIVE Negative "Negative result s from patients with symptom onset beyondfive days, should be treated as presumptive, andconfirmation with a molecular assay, if necessary forpatient management may be performed. Negative results do notrule out COVID-19 and should not be used as the sole basisfor treatment or patient management decisions, includinginfection control decisions. Negative results should beconsidered in the context of a patients recent exposures,history, and the presence of clinical signs and symptomsconsistent with COVID-19.This test detects both viable andnon-viable SARS-CoV and SARS CoV-2.Test performance dependson the amount of virus (antigen) in the sample." - NM MYOCRD SPECT R/S [id number] 07:39:00 [facility] 1970 Sex: M Patient Name: Cecy COSME Unit No: [id number] EXAMS: CPT CODE: [id number] NM MYOCRDSPECT R/S MULT 07963 INDICATION: Precordial chest pain. The patient underwent myocardial perfusion imaging utilizing IV injection of 10.6 mCi Tc99M Cardiolite at rest and IV injection of 30.8 mCi Tc99M Cardiolite at peak stress. SPECT imaging was obtained at rest and stress. Gated SPECT imaging wasobtained at stress. Jasvir treadmill protocol was utilized for stress. FINDINGS: There is no significant perfusion defect. CONCLUSIONS: 1. NORMAL EXERCISE TECHNETIUM 99 CARDIOLITE SHOWING NORMAL PERFUSION. 2. GATED PERFUSION IMAGING SHOWS NORMAL LEFT VENTRICULAR SIZE AND SYSTOLIC FUNCTION WITH NORMAL WALL MOTION. END- DIASTOLIC VOLUME IS 89 mL, END-SYSTOLIC VOLUME IS 27 mL, AND THE EJECTION FRACTION IS 70 %. at 0739 Reported and signed by: Merritt Aaron M.D. CC: Merritt Aaron Technologist: Brant Reyes ARRT; Ariel Juarez, RT(N); ... Transcrpt Date/Tm/Trnsp: 07/29/2020 (0739) JulietaGSP Orig Print D/T: S: 07/29/2020 (0743) [facility] NAME: Cecy COSME [address] PHYS: [place] [address] : 1970 AGE: 50 SEX: M LOC: [email or web address] PHONE #: [phone] EXAM DATE: 07/25/2020 STATUS: DEP CLI FAX #: [phone] RADIOLOGY NO: PAGE 1 Signed ReportSTREP A+ RAPIDSTREP A+ RAPIDPOC, COVID 19 Antigen + Flu by SofiaPOC, COVID 19 Antigen + Flu by Elissa Notes Date/Time Note Provider Source 2024-10-08 23:20:29 Pt discharged with diagnosis of chest pain and syncope. Printed and verbal instructions reviewed with and given to pt. Prescriptions given x 0. pt verbalized understanding of teaching and recommended follow-up. Denies questions or concerns at this time. Pt ambulatory at discharge. Appears in no apparent distress. No ataxia noted. Accompanied by . A Holloway RN [facility] 2024-10-08 19:01:06 Pt. Presents with C/O of right-sided chest pain with pressure, does not radiate, that started approx. 15-20 minutes ago; pt. Reports SOB with exertion & rest; denies N/V; pt. Reports dizziness A Stein RN [facility] 2023-02-21 18:05:00 [id number] [facility] [address] [place] [address] PATIENT NAME: ANN PHILLIPS ADMIT DATE: ACCOUNT NO: [id number] ROOM NO: AGE: 52 REPORT TYPE: eTRANSESOPHAGEAL REPORT SEX: M ADMITTING PHYSICIAN: ATTENDING PHYSICIAN:Jovani Newell MD *[facility]* [address] [facility] [address] [place] [address] Transesophageal Echocardiogram Patient: Ann Phillips Study Date: 02/21/2023 BP: 111 / 54 Location: [facility] URN: [id number] : 1970 Age: 52 Height: 64 in / 162.6 cm Gender: M Weight: 172.6 lb / 78.5 kg BMI/BSA: 29.7 kg/m 2 / 1.91 m 2 *Ordering Physician: * Jovani Newell MD *Interpreting Physician: * Jovani Newell MD *Money Laundering Investigator: * Jocelyne Parks Indications: Z95.2, R94.31. Study data: Consent: The risks, benefits, and alternatives to the procedure were explained to the patient and informed consent was obtained. Procedure: Initial setup: The patient was brought to the laboratory in the fasting state.Intravenous access was obtained. Surface ECG leads and pulse oximetric signals were monitored. Sedation. Moderate sedation was administered by anesthesiology staff. Transesophageal echocardiography was performed. Topical anesthesia was obtained using viscous lidocaine. A transesophageal probe (SN: [id number]) was inserted by the attending architectural associate without difficulty. Images were obtained using a TrunkbowID E95 2 cardiac ultrasound machine. Location: Catheterization laboratory. Patient status: Outpatient. Study status: Routine. Study completion: The patient tolerated the procedure well. There were no complications. Findings PATIENT NAME: ANN PHILLIPS Left ventricle: The cavity size is normal. Systolic function is normal. The estimated ejection fraction is 55-59%. Right ventricle: The cavity size is normal. Systolic function is normal. Left atrium: The atrium is dilated. The appendage is of normal size. Emptying velocity is normal. There is no evidence of a thrombus in the atrial cavity or appendage. No spontaneous echo contrast is observed. Right atrium: The atrium is normal in size. There is no evidence of a thrombus in the atrial cavity or appendage. Atrial septum: No defect or patent foramen ovale is identified. Doppler shows no xkjty-zr-aagm atrial level shunt. Aorta: Aortic root: The aortic root is normal in size. There is no atheroma. There is no evidence for aneurysm. There is no evidence for dissection. Aortic valve: There is a mechanical prosthetic valve. There is trivial regurgitation. Mitral valve: There is a bileaflet tilting disk mechanical prosthesis. Normal mechanical valve mobility. There is normal / physiologic regurgitation noted at the hinges. There is no evidence of a vegetation. Tricuspid valve: The valve is structurally normal. There is no evidence of a vegetation. There is mild regurgitation. Pulmonic valve: No thickening. Cusp separation is normal. There is no evidence of a vegetation. There is no regurgitation. Systemic veins: Superior vena cava: The vessel is normal in [...] is normal. The estimated ejection fraction is 55-59%. 2. Left atrium: The atrium is dilated. There is no evidence of a thrombus in the atrial cavity or appendage. No spontaneous echo contrast is observed. 3. Right atrium: There is no evidence of a thrombus in the atrial cavity or appendage. 4. Atrial septum: No defect or patent foramen ovale is identified. Doppler shows no ucmoi-pj-tsxt atrial level shunt. 5. Aortic valve: There is a mechanical prosthetic valve. Appears to be bileaflet but difficult to assess mobility due to shadowing artifact. There is trivial regurgitation. The peak systolic velocity is 3.2 m/sec. The mean systolic gradient is 18.0 mm Hg. 6. Mitral valve: There is a bileaflet tilting disk mechanical prosthesis. Normal mechanical valve mobility. There is normal / physiologic regurgitation noted at the hinges. There is no evidence of a vegetation. The mean diastolic gradient is 2.3 mm Hg. 7. Tricuspid valve: There is no evidence of a vegetation. There is mild regurgitation. 8. Pulmonic valve: There is no evidence of a vegetation. Prepared and electronically signed by Jovani Newell MD 02/21/2023 18:05 at 1805 PATIENT NAME: ANN PHILLIPS [facility] 2023-02-21 10:55:00 [facility] ([facility]) DT Operative Note REPORT#:[id number] REPORT STATUS: Signed DATE:02/21/23 TIME: 1055 PATIENT: ANN PHILLIPS UNIT #: [id number] ROOM/BED: : [birth year] AGE: 52 SEX: M ATTEND: Jovani Newell MD ADM AUTHOR: Carla Cabrera MD * ALL edits or amendments must be made on the electronic/computer document * Operative Report Operative Note Note: [facility] Procedure date: 02/21/2023 Choir Teacher Attending: Jacobo Cabrera MD Referring Physician: Jovani Newell Procedures Performed: 1. 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 He recently switched his architectural associate to my partner Dr. Jovani Newell. He had an echocardiogram which showed a peak velocity of 4.1 m/s and cross the mechanical aortic valve with a mean gradient of 33 mmHg and a DVI of 0.21. The mechanical mitral valve appears to be functioning normally with a mean diastolic gradient of 5 mmHg. He underwent TRISTAN today to evaluate the valves and now presents for fluoroscopy of the valves. Procedure in detail: After written informed consent was obtained the patient was brought to the cardiac catheterization laboratory in a fasting state. Fluoroscopy of the valve was then performed. Post-Procedure Diagnoses and/or Impression: 1. Bileaflet mechanical aortic and mitral valve with normal movement Plan: Patient will follow up with Dr. Jovani Newell at 1058 RPT #:[id number] END OF REPORT [facility] 2023-02-18 15:42:00 [id number] [facility] [address] [address] [place] [address] PATIENT NAME: ANN PHILLIPS ADMIT DATE: ACCOUNT NO: [id number] ROOM NO: AGE: 52 REPORT TYPE: ELECTROCARDIOGRAM SEX: M ADMITTING PHYSICIAN: ATTENDING PHYSICIAN:Jovani Newell MD Order: [id number] Test Reason : PREOP Test Date/Time Stamp: SatFeb 18 2023 15:42:59 Blood Pressure : / mmHG Vent. Rate : 076 BPM Atrial Rate : 076 BPM P-R Int : 158 ms QRS Dur : 102 ms QT Int : 404 ms P-R-T Axes : 069 055 084 degrees QTc Int : 454 ms Sinus rhythm with marked sinus arrhythmia Otherwise normal ECG Confirmed by MILDRED TRAMMELL ([id number]) on 02/20/2023 10:14:25 AM Referred By: Jovani Newell Confirmed by:MILDRED TRAMMELL at 1014 PATIENT NAME: ANN PHILLIPS [facility] 2020-09-02 06:32:00 [id number] [facility] [id number] [place] [address] PATIENT NAME: Cecy COSME ADMIT DATE: 08/30/20 ACCOUNT NO: [id number] ROOM NO: AGE: 50 REPORT TYPE: eTRANSESOPHAGEAL ECHO SEX: M ADMITTING PHYSICIAN: ATTENDING PHYSICIAN:Merritt Aaron MD *[facility]* [address] [place] [address] Transesophageal Echocardiogram Patient: Cecy Cosme Study Date: 08/30/2020 BP: 132 / 61 Location: [facility] URN: [id number] : 1970 Age: 50 Height: / Gender: M Weight: / BMI/BSA: / *Ordering Physician: * Merritt Aaron MD *Interpreting Physician: * Merritt Aaron MD *Money Laundering Investigator: * Esther Rosenthal RUST, T Indications: EVALUATE PROTHETIC VALVES. Study data: Consent: The risks, benefits, and alternatives to the procedure were explained to the patient and informed consent was obtained. Procedure: Initial setup: The patient was brought to the laboratory in the fasting state.Intravenous access was obtained. Surface ECG leads and pulse oximetric signals were monitored. Sedation. Moderate sedation was administered by cardiology staff. Transesophageal echocardiography was performed. Topical anesthesia was obtained using viscous lidocaine. A transesophageal probe (SN: [id number]) was inserted by the attending architectural associate without difficulty. Complete 2D and complete spectral Doppler. Location: Catheterization laboratory. Patient status: Outpatient. Patient room number: CATHHOLD6. Study status: Scheduled. Study completion: The patient tolerated the procedure well. There were no complications. Findings PATIENT NAME: Cecy COSME [id number] [place] [address] PATIENT NAME: Cecy COSME KARY Cheney ADMIT DATE: 08/30/20 ACCOUNT NO: [id number] ROOM NO: AGE: 50 REPORT TYPE: eTRANSESOPHAGEAL ECHO SEX: M ADMITTING PHYSICIAN: ATTENDING PHYSICIAN:Merritt Aaron MD Left ventricle: The cavity size is normal. Systolic function is normal. Right ventricle: The cavity size is normal. Left atrium: The atrium is dilated. There is no left atrial appendage thrombus. Right atrium: The atrium is normal in size. Atrial septum: No defect or patent foramen ovale is identified. Aorta: There is mild atheromatous plaque. Aortic valve: There is a normally functioning mechanical prosthetic valve. There is no significant regurgitation. Mitral valve: There is a normally functioning mechanical prosthesis. There is mild regurgitation. Tricuspid valve: There is trivial regurgitation. Measurements Mitral valve Value 10/30/2019 Mean v, D 0.72 m/sec 0.83 VTI leaflet coapt 31.5 cm 46.1 PHT 73 ms 76 Mean grad, D 2.5 mm Hg 3.4 Peak grad, D 5.1 mm Hg 9.8 MVA, PHT 3.7 cm 2 2.9 Conclusions Summary: 1. Left ventricle: The cavity size is normal. Systolic function is normal. 2. Left atrium: The atrium is dilated. 3. Aortic valve: There is a normally functioning mechanical prosthetic valve. 4. Mitral valve: There is a normally functioning mechanical prosthesis. There is mild regurgitation. The mean diastolic gradient is 2.5 mm Hg. The peak diastolic gradient is 5.1 mm Hg. Prepared and electronically signed by PATIENT NAME: Cecy COSME [phone] [place] [address] PATIENT NAME: Cecy COSME ADMIT DATE: 08/30/20 ACCOUNT NO: [id number] ROOM NO: AGE: 50 REPORT TYPE: eTRANSESOPHAGEAL ECHO SEX: M ADMITTING PHYSICIAN: ATTENDING PHYSICIAN:Merritt Aaron MD, Gregory MD 09/02/2020 06:32 at 0632 PATIENT NAME: Cecy COSME [facility] 2020-09-02 06:32:00 THIS REPORT HAS BEEN APPENDED [id number] [place] [address] PATIENT NAME: Cecy COSME ADMIT DATE: 08/30/20 ACCOUNT NO: [id number] ROOM NO: AGE: 50 REPORT TYPE: eTRANSESOPHAGEAL ECHO SEX: M ADMITTING PHYSICIAN: ATTENDING PHYSICIAN:Merritt Aaron MD *[facility]* [address] [place] [address] Transesophageal Echocardiogram Patient: Cecy Cosme Study Date: 08/30/2020 BP: 132 / 61 Location: [facility] URN: [id number] : 1970 Age: 50 Height: / Gender: M Weight: / BMI/BSA: / *Ordering Physician: * Merritt Aaron MD *Interpreting Physician: * Mreritt Aaron MD *Money Laundering Investigator: * Esther Rosenthal RD, [facility] Indications: EVALUATE PROTHETIC VALVES. Study data: Consent: The risks, benefits, and alternatives to the procedure were explained to the patient and informed consent was obtained. Procedure: Initial setup: The patient was brought to the laboratory in the fasting state.Intravenous access was obtained. Surface ECG leads and pulse oximetric signals were monitored. Sedation. Moderate sedation was administered by cardiology staff. Transesophageal echocardiography was performed. Topical anesthesia was obtained using viscous lidocaine. A transesophageal probe (SN: [id number]) was inserted by the attending architectural associate without difficulty. Complete 2D and complete spectral Doppler. Location: Catheterization laboratory. Patient status: Outpatient. Patient room number: CATHHOLD6. Study status: Scheduled. Study completion: The patient tolerated the procedure well. There were no complications. PATIENT NAME: Cecy COSME [phone] [place] [address] PATIENT NAME: Cecy COSME ADMIT DATE: 08/30/20 ACCOUNT NO: [id number] ROOM NO: AGE: 50 REPORT TYPE: eTRANSESOPHAGEAL ECHO SEX: M ADMITTING PHYSICIAN: ATTENDING PHYSICIAN:Merritt Aaron MD Findings Left ventricle: The cavity size is normal. Systolic function is normal. Right ventricle: The cavity size is normal. Left atrium: The atrium is dilated. There is no left atrial appendage thrombus. Right atrium: The atrium is normal in size. Atrial septum: No defect or patent foramen ovale is identified. Aorta: There is mild atheromatous plaque. Aortic valve: There is a normally functioning mechanical prosthetic valve. There is no significant regurgitation. Mitral valve: There is a normally functioning mechanical prosthesis. There is mild regurgitation. Tricuspid valve: There is trivial regurgitation. Measurements Mitral valve Value 10/30/2019 Mean v, D 0.72 m/sec 0.83 VTI leaflet coapt 31.5 cm 46.1 PHT 73 ms 76 Mean grad, D 2.5 mm Hg 3.4 Peak grad, D 5.1 mm Hg 9.8 MVA, PHT 3.7 cm 2 2.9 Conclusions Summary: 1. Left ventricle: The cavity size is normal. Systolic function is normal. 2. Left atrium: The atrium is dilated. 3. Aortic valve: There is a normally functioning mechanical prosthetic valve. 4. Mitral valve: There is a normally functioning mechanical prosthesis. There is mild regurgitation. The mean diastolic gradient is 2.5 mm Hg. The peak diastolic gradient is 5.1 mm Hg. Prepared and electronically signed by PATIENT NAME: Cecy COSME [phone] [place] [address] PATIENT NAME: Cecy COSME ADMIT DATE: 08/30/20 ACCOUNT NO: [id number] ROOM NO: AGE: 50 REPORT TYPE: eTRANSESOPHAGEAL ECHO SEX: M ADMITTING PHYSICIAN: ATTENDING PHYSICIAN:Merritt Aaron MD, Gregory MD 09/02/2020 06:32 at 06 SECTION 2 ADDENDUM 1: 09/06/20 1500 [facility] *[facility]* [address] [place] [address] Transesophageal Echocardiogram (Report amended [id number]) Patient: Cecy Cosme Study Date: 08/30/2020 BP: 132 / 61 Location: [facility] URN: [id number] : 1970 Age: 50 Height: / Gender: M Weight: / BMI/BSA: / *Ordering Physician: * Merritt Aaron MD *Interpreting Physician: * Merritt Aaron MD *Money Laundering Investigator: * Galo Esther RUST, RVT Indications: EVALUATE PROTHETIC VALVES. Study data: Consent: The risks, benefits, and alternatives to the procedure were explained to the patient and informed consent was obtained. Procedure: Initial setup: The patient was brought to the laboratory in the fasting state.Intravenous access was obtained. Surface ECG leads and pulse oximetric signals were monitored. Sedation. Moderate PATIENT NAME: Cecy COSME [phone] [place] [address] PATIENT NAME: Cecy COSME ADMIT DATE: 08/30/20 ACCOUNT NO: [id number] ROOM NO: AGE: 50 REPORT TYPE: eTRANSESOPHAGEAL ECHO SEX: M ADMITTING PHYSICIAN: ATTENDING PHYSICIAN:Merritt Aaron MD sedation was administered by cardiology staff. Transesophageal echocardiography was performed. Topical anesthesia was obtained using viscous lidocaine. A transesophageal probe (SN: [id number]) was inserted by the attending architectural associate without difficulty. Complete 2D, complete spectral Doppler, and color Doppler. Location: Catheterization laboratory. Patient status: Outpatient. Patient room number: CATHHOLD6. Study status: Scheduled. Study completion: The patient tolerated the procedure well. There were no complications. Findings Left ventricle: The cavity size is normal. Systolic function is normal. Right ventricle: The cavity size is normal. Left atrium: The atrium is dilated. There is no left atrial appendage thrombus. Right atrium: The atrium is normal in size. Atrial septum: No defect or patent foramen ovale is identified. Aorta: There is mild atheromatous plaque. Aortic valve: There is a normally functioning mechanical prosthetic valve. There is no significant regurgitation. Mitral valve: There is a normally functioning mechanical prosthesis. There is mild regurgitation. Tricuspid valve: There is trivial regurgitation. Measurements Mitral valve Value 10/30/2019 Mean v, D 0.72 m/sec 0.83 VTI leaflet coapt 31.5 cm 46.1 PHT 73 ms 76 Mean grad, D 2.5 mm Hg 3.4 Peak grad, D 5.1 mm Hg 9.8 MVA, PHT 3.7 cm 2 2.9 Conclusions Summary: 1. Left ventricle: The cavity size is normal. Systolic function is PATIENT NAME: Cecy COSME [phone] [place] [address] PATIENT NAME: Cecy COSME ADMIT DATE: 08/30/20 ACCOUNT NO: [id number] ROOM NO: AGE: 50 REPORT TYPE: eTRANSESOPHAGEAL ECHO SEX: M ADMITTING PHYSICIAN: ATTENDING PHYSICIAN:Merritt Aaron MD normal. 2. Left atrium: The atrium is dilated. 3. Aortic valve: There is a normally functioning mechanical prosthetic valve. 4. Mitral valve: There is a normally functioning mechanical prosthesis. There is mild regurgitation. The mean diastolic gradient is 2.5 mm Hg. The peak diastolic gradient is 5.1 mm Hg. Amended Merritt Aaron MD 09/06/2020 14:59 at 1500 PATIENT NAME: Cecy COSME [facility] 2020-08-30 06:53:00 [phone] [place] [id number] PATIENT NAME: Cecy COSME ADMIT DATE: 08/30/20 ACCOUNT NO: [id number] ROOM NO: AGE: 50 REPORT TYPE: ELECTROCARDIOGRAM SEX: M ADMITTING PHYSICIAN: ATTENDING PHYSICIAN:Merritt Aaron MD Order: [id number] Test Reason : TRANSESOPHAGEAL ECHOCARDIOGRAM Test Date/Time Stamp: SatAug 30 2020 06:53:23 Blood Pressure : / mmHG Vent. Rate : 058 BPM Atrial Rate : 058 BPM P-R Int : 174 ms QRS Dur : 102 ms QT Int : 434 ms P-R-T Axes : 065 049 052 degrees QTc Int : 426 ms Sinus bradycardia Otherwise normal ECG When compared with ECG of 02-JUL-2015 09:29, Nonspecific T wave abnormality no longer evident in Inferior leads Confirmed by GARIMA SAUNDERS ([id number]) on 08/30/2020 12:54:45 PM Referred By: Self Referred Confirmed by:GARIMA SAUNDERS at 1254 PATIENT NAME: Cecy COSME [facility] 2020-07-25 23:09:00 [phone] [place] [id number] PATIENT NAME: Cecy COSME ADMIT DATE: 07/25/20 ACCOUNT NO: [id number] ROOM NO: AGE: 50 REPORT TYPE: eSTRESS EKG REPORT SEX: M ADMITTING PHYSICIAN: ATTENDING PHYSICIAN:Merritt Aaron MD Acquisition Time: 2020-07-25 23:09:37 Test Date/Time Stamp:SatJul 25 2020 23:09:37 Total Exercise Time: 00:10:40 Test Indications: Angina Medications: Protocol: JASVIR Max HR: 131 BPM 77% of Pred: 169 BPM Max BP: 185/055 mmHG Max Work Load: 12.8 METS Equivocal ECG exercise stress test. Myocardial perfusion scan to follow I provided direct supervision for this test Confirmed by MERRITT AARON MD ([id number]) on 07/28/2020 6:01:55 PM Referred By: Merritt Aaron Confirmed by:MERRITT AARON MD at 1802 PATIENT NAME: Cecy COSME [facility] 2019-11-05 20:08:00 [phone] [place] [address] PATIENT NAME: ANN COSME ADMIT DATE: 10/30/19 ACCOUNT NO: [id number] ROOM NO: AGE: 49 REPORT TYPE: ECHOCARDIOGRAM SEX: M ADMITTING PHYSICIAN: ATTENDING PHYSICIAN:Merritt Aaron MD *[facility]* [address] [place] [address] Transthoracic Echocardiogram Patient: Ann Cosme Study Date: 10/30/2019 BP: Location: [facility] URN: [id number] : 1970 Age: 49 Height: 64 in / 162.6 cm Gender: M Weight: 166.7 lb / 75.8 kg BMI/BSA: 28.7 kg/m 2 / 1.87 m 2 *Ordering Physician: * Merritt Aaron MD *Interpreting Physician: * Merritt Aaron MD *Money Laundering Investigator: * Eva Villalba RDCS, JOSE Indications: Mitral Valve Replacement. Study data: Transthoracic echocardiogram. Procedure: Transthoracic echocardiography was performed. Images were obtained using a [employer] cardiac ultrasound machine. Image quality was adequate. Complete 2D, complete spectral Doppler, and color Doppler. Location: [facility]. Findings Left ventricle: The cavity size is normal. Wall thickness is normal. The estimated ejection fraction is 65-69%. Wall motion is normal; there are no regional wall motion abnormalities. Features are consistent with a pseudonormal left ventricular filling pattern, with concomitant abnormal relaxation and increased filling pressure (grade 2 diastolic PATIENT NAME: ANN COSME dysfunction). Right ventricle: The cavity size is normal. Systolic function is normal. The estimated peak pressure is 43 mm Hg. Left atrium: The atrium is mildly to moderately dilated. Right atrium: The atrium is normal in size. Aorta: The aorta is normal. Aortic valve: There is a mechanical prosthetic valve. The annulus is normal-sized. Transvalvular velocity is increased. Mitral valve: There is a mechanical prosthesis. The annulus is normal-sized. Transvalvular velocity is within the normal range. Tricuspid valve: The leaflets are normal thickness. There is trivial regurgitation. Pulmonic valve: Not well visualized. There is trivial regurgitation. Pericardium: There is no pericardial effusion. Systemic veins: Inferior vena cava: The vessel is normal in size. Measurements Left ventricle Value Ref Aortic valve Value Ref DERRICK, LAX 5.4 cm 4.2 - 5.8 Leaflet sep, MM 1.33 cm ----- ESD, LAX 3.2 cm 2.5 - 4.0 Mean v, S 3.12 m/sec ----- ESD/bsa, LAX 1.7 cm/m 2 1.3 - 2.1 VTI, S 101.8 cm ----- FS, LAX 40 % 25 - 43 Mean grad, S 44.1 mm Hg ----- PW, ED 1.0 cm 0.6 - 1.0 Peak grad, S 77.6 mm Hg ----- PW, ES 1.6 cm LVOT/AV, VTI ratio 0.25 ----- IVS/PW, ED 0.94 SWAPNA, VTI 0.81 cm 2 ----- EF 71 % 52 - 72 SWAPNA, Vmax 0.76 cm 2 ----- E', lat oneal, TDI 6.8 cm/sec >=10.0 AR peak v 3.78 m/sec ----- E/e', lat oneal, TDI 23 AR decel time 1680 ms ----- E', med oneal, TDI 6.3 cm/sec >=7.0 AR PHT 487 ms ----- E/e', med oneal, TDI 25 AR peak grad 57 mm Hg ----- E', avg, TDI 6.6 cm/sec E/e', avg, TDI 24 <=14 Mitral valve Value Ref Peak E 0.07 m/sec ----- LVOT Value Ref Peak A 1.08 m/sec ----- Diam, S 2.06 cm Mean v, D PATIENT NAME: MARIELLE AGUIRREANN 0.83 m/sec ----- Area 3.3 cm 2 VTI leaflet coapt 46.1 cm ----- Peak jass, S 1 m/sec Decel time 269 ms ----- Mean jass, S 0.74 m/sec PHT 76 ms ----- VTI, S 25.5 cm Mean grad, D 3.4 mm Hg ----- Peak grad, S 4 mm Hg Peak grad, D 9.8 mm Hg ----- Mean grad, S 2 mm Hg Peak E/A ratio 1.47 ----- SV 85 ml MVA, PHT 2.9 cm 2 ----- SV/bsa 46 ml/m 2 Tricuspid valve Value Ref Ventricular septum Value Ref TR peak v 2.88 m/sec <=2.8 IVS, ED 0.9 cm 0.6 - 1.0 Peak RV-RA grad, S 33 mm Hg ----- IVS, ES 1.5 cm Aortic root Value Ref Right ventricle Value Ref Root diam, ED MM 2.90 cm ----- DERRICK, LAX 2.9 cm Pressure, S 43 mm Hg Pulmonary artery Value Ref Pressure, S 38.5 mm Hg ----- Left atrium Value Ref AP dim, ES 4.58 cm 3.00 - 4.00 Systemic veins Value Ref AP dim, ES MM 4.7 cm 3.0 - 4.0 Estimated CVP 10 mm Hg ----- LA/Ao root ratio, MM 1.63 Conclusions Summary: 1. Left ventricle: The cavity size is normal. Wall thickness is normal. The estimated ejection fraction is 65-69%. Wall motion is normal; there are no regional wall motion abnormalities. Features are consistent with a pseudonormal left ventricular filling pattern, with concomitant abnormal relaxation and increased filling pressure (grade 2 diastolic dysfunction). 2. Left atrium: The atrium is mildly to moderately dilated. 3. Aortic valve: There is a mechanical prosthetic valve. 4. Mitral valve: There is a mechanical prosthesis. 5. Tricuspid valve: There is trivial regurgitation. PATIENT NAME: ANN COSME 6. Pulmonic valve: There is trivial regurgitation. Prepared and electronically signed by Merritt Aaron MD 11/05/2019 20:08 at 2008 PATIENT NAME: ANN COSME [facility] 2019-11-05 20:08:00 THIS REPORT HAS BEEN APPENDED [id number] [place] [address] PATIENT NAME: ANN COSME ADMIT DATE: 10/30/19 ACCOUNT NO: [id number] ROOM NO: AGE: 49 REPORT TYPE: ECHOCARDIOGRAM SEX: M ADMITTING PHYSICIAN: ATTENDING PHYSICIAN:Merritt Aaron MD *[facility]* [address] [place] [address] Transthoracic Echocardiogram Patient: Ann Cosme Study Date: 10/30/2019 BP: Location: [facility] URN: [id number] : 1970 Age: 49 Height: 64 in / 162.6 cm Gender: M Weight: 166.7 lb / 75.8 kg BMI/BSA: 28.7 kg/m 2 / 1.87 m 2 *Ordering Physician: * Merritt Aaron MD *Interpreting Physician: * Merritt Aaron MD *Money Laundering Investigator: * Eva Villalba RDCS, T Indications: Mitral Valve Replacement. Study data: Transthoracic echocardiogram. Procedure: Transthoracic echocardiography was performed. Images were obtained using a [employer] cardiac ultrasound machine. Image quality was adequate. Complete 2D, complete spectral Doppler, and color Doppler. Location: [facility]. Findings Left ventricle: The cavity size is normal. Wall thickness is normal. The estimated ejection fraction is 65-69%. Wall motion is normal; there are no regional wall motion abnormalities. Features are consistent with PATIENT NAME: ANN COSME a pseudonormal left ventricular filling pattern, with concomitant abnormal relaxation and increased filling pressure (grade 2 diastolic dysfunction). Right ventricle: The cavity size is normal. Systolic function is normal. The estimated peak pressure is 43 mm Hg. Left atrium: The atrium is mildly to moderately dilated. Right atrium: The atrium is normal in size. Aorta: The aorta is normal. Aortic valve: There is a mechanical prosthetic valve. The annulus is normal-sized. Transvalvular velocity is increased. Mitral valve: There is a mechanical prosthesis. The annulus is normal-sized. Transvalvular velocity is within the normal range. Tricuspid valve: The leaflets are normal thickness. There is trivial regurgitation. Pulmonic valve: Not well visualized. There is trivial regurgitation. Pericardium: There is no pericardial effusion. Systemic veins: Inferior vena cava: The vessel is normal in size. Measurements Left ventricle Value Ref Aortic valve Value Ref DERRICK, LAX 5.4 cm 4.2 - 5.8 Leaflet sep, MM 1.33 cm ----- ESD, LAX 3.2 cm 2.5 - 4.0 Mean v, S 3.12 m/sec ----- ESD/bsa, LAX 1.7 cm/m 2 1.3 - 2.1 VTI, S 101.8 cm ----- FS, LAX 40 % 25 - 43 Mean grad, S 44.1 mm Hg ----- PW, ED 1.0 cm 0.6 - 1.0 Peak grad, S 77.6 mm Hg ----- PW, ES 1.6 cm LVOT/AV, VTI ratio 0.25 ----- IVS/PW, ED 0.94 SWAPNA, VTI 0.81 cm 2 ----- EF 71 % 52 - 72 SWAPNA, Vmax 0.76 cm 2 ----- E', lat oneal, TDI 6.8 cm/sec >=10.0 AR peak v 3.78 m/sec ----- E/e', lat oneal, TDI 23 AR decel time 1680 ms ----- E', med oneal, TDI 6.3 cm/sec >=7.0 AR PHT 487 ms ----- E/e', med oneal, TDI 25 AR peak grad 57 mm Hg ----- E', avg, TDI 6.6 cm/sec E/e', avg, TDI 24 <=14 Mitral valve Value Ref Peak E 0.07 m/sec ----- LVOT Value Ref Peak A PATIENT NAME: ANN COSME 1.08 m/sec ----- Diam, S 2.06 cm Mean v, D 0.83 m/sec ----- Area 3.3 cm 2 VTI leaflet coapt 46.1 cm ----- Peak jass, S 1 m/sec Decel time 269 ms ----- Mean jass, S 0.74 m/sec PHT 76 ms ----- VTI, S 25.5 cm Mean grad, D 3.4 mm Hg ----- Peak grad, S 4 mm Hg Peak grad, D 9.8 mm Hg ----- Mean grad, S 2 mm Hg Peak E/A ratio 1.47 ----- SV 85 ml MVA, PHT 2.9 cm 2 ----- SV/bsa 46 ml/m 2 Tricuspid valve Value Ref Ventricular septum Value Ref TR peak v 2.88 m/sec <=2.8 IVS, ED 0.9 cm 0.6 - 1.0 Peak RV-RA grad, S 33 mm Hg ----- IVS, ES 1.5 cm Aortic root Value Ref Right ventricle Value Ref Root diam, ED MM 2.90 cm ----- DERRICK, LAX 2.9 cm Pressure, S 43 mm Hg Pulmonary artery Value Ref Pressure, S 38.5 mm Hg ----- Left atrium Value Ref AP dim, ES 4.58 cm 3.00 - 4.00 Systemic veins Value Ref AP dim, ES MM 4.7 cm 3.0 - 4.0 Estimated CVP 10 mm Hg ----- LA/Ao root ratio, MM 1.63 Conclusions Summary: 1. Left ventricle: The cavity size is normal. Wall thickness is normal. The estimated ejection fraction is 65-69%. Wall motion is normal; there are no regional wall motion abnormalities. Features are consistent with a pseudonormal left ventricular filling pattern, with concomitant abnormal relaxation and increased filling pressure (grade 2 diastolic dysfunction). 2. Left atrium: The atrium is mildly to moderately dilated. 3. Aortic valve: There is a mechanical prosthetic valve. PATIENT NAME: ANN COSME 4. Mitral valve: There is a mechanical prosthesis. 5. Tricuspid valve: There is trivial regurgitation. 6. Pulmonic valve: There is trivial regurgitation. Prepared and electronically signed by Merritt Aaron MD 11/05/2019 20:08 at 2008 SECTION 2 ADDENDUM 1: 11/06/19 1638 [facility] *[facility]* [address] [place] [id number] Transthoracic Echocardiogram (Report amended [id number]) Patient: Ann Cosme Study Date: 10/30/2019 BP: Location: [facility] URN: [id number] : 1970 Age: 49 Height: 64 in / 162.6 cm Gender: M Weight: 166.7 lb / 75.8 kg BMI/BSA: 28.7 kg/m 2 / 1.87 m 2 *Ordering Physician: * Merritt Aaron MD *Interpreting Physician: * Merritt Aaron MD *Money Laundering Investigator: * Eva Villalba RD, T Indications: Mitral Valve Replacement. Study data: Transthoracic echocardiogram. Procedure: Transthoracic echocardiography was performed. Images were obtained using a [employer] cardiac ultrasound machine. Image quality was adequate. Complete 2D, complete spectral Doppler, and color Doppler. Location: [facility]. Findings PATIENT NAME: ANN COSME Left ventricle: The cavity size is normal. Wall thickness is normal. The estimated ejection fraction is 65-69%. Wall motion is normal; there are no regional wall motion abnormalities. Features are consistent with a pseudonormal left ventricular filling pattern, with concomitant abnormal relaxation and increased filling pressure (grade 2 diastolic dysfunction). Right ventricle: The cavity size is normal. Systolic function is normal. The estimated peak pressure is 43 mm Hg. Left atrium: The atrium is mildly to moderately dilated. Right atrium: The atrium is normal in size. Aorta: The aorta is normal. Aortic valve: There is a mechanical prosthetic valve. The annulus is normal-sized. Transvalvular velocity is increased. Mitral valve: There is a mechanical prosthesis. The annulus is normal-sized. Transvalvular velocity is within the normal range. Tricuspid valve: The leaflets are normal thickness. There is trivial regurgitation. Pulmonic valve: Not well visualized. There is trivial regurgitation. Pericardium: There is no pericardial effusion. Systemic veins: Inferior vena cava: The vessel is normal in size. Measurements Left ventricle Value Ref Aortic valve DERRICK, LAX 5.4 cm 4.2 - 5.8 Leaflet sep, MM ESD, LAX 3.2 cm 2.5 - 4.0 Mean v, S ESD/bsa, LAX 1.7 cm/m 2 1.3 - 2.1 VTI, S FS, LAX 40 % 25 - 43 Mean grad, S PW, ED 1.0 cm 0.6 - 1.0 Peak grad, S PW, ES 1.6 cm LVOT/AV, VTI ratio IVS/PW, ED 0.94 SWAPNA, VTI EF 71 % 52 - 72 SWAPNA, Vmax E', lat oneal, TDI 6.8 cm/sec >=10.0 AR peak v E/e', lat oneal, TDI 23 AR decel time E', med oneal, TDI 6.3 cm/sec >=7.0 AR PHT E/e', med oneal, TDI 25 AR peak grad E', avg, TDI 6.6 cm/sec E/e', avg, TDI 24 <=14 Mitral valve Peak E LVOT Value Ref Peak A Diam, S 2.06 cm Mean v, D Area 3.3 cm 2 VTI leaflet coapt Peak jass, S 1 m/sec Decel time Mean jass, S 0.74 m/sec PHT VTI, S 25.5 cm Mean grad, D Peak grad, S 4 mm Hg Peak grad, D Mean grad, S 2 mm Hg Peak E/A ratio SV 85 ml MVA, PHT SV/bsa 46 ml/m 2 Tricuspid valve Ventricular septum Value Ref TR peak v PATIENT NAME: ANN COSME IVS, ED 0.9 cm 0.6 - 1.0 Peak RV-RA grad, S IVS, ES 1.5 cm Aortic root Right ventricle Value Ref Root diam, ED MM DERRICK, LAX 2.9 cm Pressure, S 43 mm Hg Pulmonary artery Pressure, S Left atrium Value Ref AP dim, ES 4.58 cm 3.00 - 4.00 Systemic veins AP dim, ES MM 4.7 cm 3.0 - 4.0 Estimated CVP LA/Ao root ratio, MM 1.63 Conclusions Summary: 1. Left ventricle: The cavity size is normal. Wall thickness is normal. The estimated ejection fraction is 65-69%. Wall motion is normal; there are no regional wall motion abnormalities. Features are consistent with a pseudonormal left ventricular filling pattern, with concomitant abnormal relaxation and increased filling pressure (grade 2 diastolic dysfunction). 2. Left atrium: The atrium is mildly to moderately dilated. 3. Aortic valve: There is a mechanical prosthetic valve. Transvalvular velocity is increased. 4. Mitral valve: There is a mechanical prosthesis. 5. Tricuspid valve: There is trivial regurgitation. 6. Pulmonic valve: There is trivial regurgitation. Amended Merritt Aaron MD 11/06/2019 16:37 at 1638 PATIENT NAME: ANN COSME [facility]
[2024-12-27] MEDS ORDERED: NA CHLORIDE 0.9% 1,000 ML ONE (14:57)
[2024-12-27] MEDS ORDERED: KETOROLAC 30 MG/ML INJ ONE (14:57)
[2024-12-27 15:01] LABS: Absolute Eosinophils 0.3 K/uL (0-0.5); Absolute Lymphocytes (CBC) 1.7 K/uL (0.7-4.9); Absolute Monocytes 0.5 K/uL (0.1-1.3); Absolute Neutrophil 4.1 K/uL (1.8-8.0); Basophils % 0.6 % (0-1.3); Eosinophils % 4.3 % (0-4.4); Hematocrit 40.3 % (39.6-49.0); Hemoglobin 13.6 g/dL (13.6-17.9); Lymphocytes % 25.3 % (15.3-44.8); MCH 28.2 pg (27.0-35.0); MCHC 33.9 g/dL (32.0-36.0); MCV 83.2 fL (80-100); MPV 7.5 fL (7.6-11.3); Neutrophils % 61.8 % (41.7-73.7); Nucleated Red Blood Cells % 0.1 % (0-0); Platelets 257 thou/uL (152-406); RBC Red Blood Cell Count 4.84 M/uL (4.33-5.43); Red Cell Distribution Width 14.6 % (12.1-15.2)
[2024-12-27 15:23] LABS: Albumin 3.3 g/dL (3.4-5.0); Albumin/Globulin Ratio 0.9 (1.1-1.8); Anion Gap 10.1 mEq/L (5.0-15.0); Bilirubin Total 0.5 mg/dL (0.2-1.0); Globulin 3.5 g/dL (2.3-3.5); Potassium 4.1 mEq/L (3.5-5.1); Protein, Total 6.8 g/dL (6.4-8.2)
--- NOTE | 2024-12-27 16:26 | RAD REPORT ---
EXAMINATION: CT ABDOMEN AND PELVIS WITH CONTRAST CLINICAL INDICATION: ABD PAIN TECHNIQUE: CT abdomen and pelvis was performed, after the administration of IV contrast[facility] Axial, sagittal and coronal reconstructions were obtained. One or more of the following dose reduction techniques were used: Automated exposure control, adjustment of the mA and k V according to patient size, and iterative reconstruction. Unless otherwise specified, incidental findings do not require dedicated imaging follow-up. COMPARISON: 08/28/2023 FINDINGS: LOWER CHEST: 9 mm nodule appears unchanged in the right middle lobe inferiorly. LIVER: Moderate fatty liver is present. No focal lesion or biliary dilatation is seen. Grossly unre markable gallbladder. SPLEEN: Normal size. No focal lesion. PANCREAS: No mass, ductal dilation, or candi-pancreatic fluid. ADRENALS: Normal; no mass. KIDNEYS: Normal size and contour. No hydronephrosis. GASTROINTESTINAL TRACT: No evidence of free air, significant intra-abdominal free fluid, bowel obstru ction or abscess. Moderate stool is present throughout the colon. Mild inflammation measuring 12 mm anterior to segment of the descending colon likely epiploic appendicitis. The adjacent wall of the colon is asymmetrically thickened to 7 mm. APPENDIX: Appendix not visualized, but no inflammatory changes in region of appendix. LYMPH NODES: No lymphadenopathy. MUSCULOSKELETAL: No acute or suspicious osseous abnormality. ADDITIONAL FINDINGS: Moderate fat-containing left inguinal hernia. IMPRESSION: Epiploic appendicitis is suspected adjacent to the descending colon in the left upper quadrant. In ad dition, there is asymmetric wall thickening of the colon in this region which could indicate the presence of a mass. Recommend follow-up colonoscopy for direct visualization. Diffuse fatty liver.
--- NOTE | 2024-12-27 17:04 | EDPHYS ---
Physician Documentation [facility] Name: Cecy Song Age: 54 yrs Sex: Male : 1970 Arrival Date: 12/27/2024 Time: 14:29 Bed 17 Private MD: ED Physician Irineo Hernández HPI: 12/27 15:08 This 54 yrs old Male presents to ER via Ambulatory with complaints of kb Abdominal Pain. 15:08 Pt is a 54 year old male who presents for LUQ pain that started yesterday. Pain worse kb with movement and deep breath. Denies n/v/d, injury, fever. Historical: - Allergies: 14:34 No Known Allergies; aa5 - Home Meds: 14:34 warfarin 5 mg Oral tab once daily [Active]; metoprolol tartrate 25 mg Oral tab once aa5 daily [Active]; aspirin 81 mg Oral tablet 1 tab daily [Active]; - PMHx: 14:34 Hypertensive disorder; aortic valve replacement; mitral valve replacement; aa5 - PSHx: 14:34 aortic and mitral valce replacement; aa5 - Immunization history:: Adult Immunizations unknown. - Infectious Disease History:: Denies. - Social history:: Smoking status: Patient denies any tobacco usage or history of. ROS: 15:08 Constitutional: As per HPI kb Exam: 15:08 Constitutional: This is a well developed, well nourished patient who is awake, alert, kb and in no acute distress. Head/Face: Normocephalic, atraumatic. ENT: Moist Mucous membranes Cardiovascular: Regular rate Respiratory: Respirations even and unlabored. No increased work of breathing. Talking in full sentences Skin: Warm, dry with normal turgor. Normal color. MS/ Extremity: Pulses equal, no cyanosis. Neurovascular intact. Full, normal range of motion. Neuro: Awake and alert, GCS 15, oriented to person, place, time, and situation. 15:08 Abdomen/GI: Inspection: abdomen appears normal, Bowel sounds: normal, Palpation: soft, in all quadrants, moderate abdominal tenderness, in the left upper quadrant, Vital Signs: 14:33 BP 113 / 74; Pulse 61; Resp 18 S; Temp 97.9(O); Pulse Ox 99% on R/A; Weight 77.11 kg aa5 (R); Height 5 ft. 3 in. (R); 15:35 BP 127 / 53; Pulse 60; Resp 16; Pulse Ox 100% on R/A; dd2 16:30 BP 125 / 80; Pulse 59; Resp 16; Pulse Ox 99% on R/A; dd2 17:35 BP 127 / 75; Pulse 63; Resp 16; Pulse Ox 99% on R/A; dd2 14:33 Body Mass Index 30.11 (77.11 kg, 160.02 cm) aa5 [place] Coma Score: 15:06 Eye Response: spontaneous(4). Motor Response: obeys commands(6). Verbal Response: dd2 oriented(5). Total: 15. MDM: 14:34 Medical Screening Exam initiated kb 17:01 Data reviewed: vital signs, nurses notes. kb 17:01 Differential diagnosis: bowel obstruction, diverticulitis, gastritis, non-specific abd kb pain. Historians other than the Patient: Family Member: family. Counseling: I had a detailed discussion with the patient and/or guardian regarding the historical points, exam findings, and any diagnostic results supporting the discharge/admit diagnosis, lab results, radiology results, the need for outpatient follow up, a family practitioner, to return to the emergency department if symptoms worsen or persist or if there are any questions or concerns that arise at home. 12/27 14:37 Order name: CBC with Diff; Complete Time: 15:07 kb 12/27 14:37 Order name: CMP; Complete Time: 15:24 kb 12/27 14:37 Order name: Lipase; Complete Time: 15:24 kb 12/27 14:37 Order name: CT Abd/Pelvis - IV Contrast Only; Complete Time: 17:01 kb 12/27 14:37 Order name: IV Saline Lock; Complete Time: 15:06 kb 12/27 14:37 Order name: Labs collected and sent; Complete Time: 15:06 kb Administered Medications: 15:05 Drug: TORadol - Ketorolac IVP 15 mg IVP once Route: IVP; Site: right antecubital; dd2 15:20 Follow up: Response: No adverse reaction dd2 15:05 Drug: NS 0.9% IV 1000 ml IV at 1 bolus Per protocol; to be given as a bolus over 60 dd2 minutes Route: IV; Rate: 1 bolus; Site: right antecubital; 16:10 Follow up: IV Status: Completed infusion dd2 17:34 Drug: Hydrocodone-Acetaminophen PO (7.5 mg-325 mg) 1 tabs PO once Route: PO; dd2 17:43 Follow up: Response: Medication administered at discharge. dd2 Disposition: 18:40 Co-signature as Attending Physician, Irineo Hernández MD I reviewed the patient's care rn provided by the Advanced Practice Provider and agree with the diagnosis and treatment plan. Disposition Summary: 12/27/24 17:03 Discharge Ordered Notes: Location: Home kb Condition: Stable kb Diagnosis - Epiploic appendagitis kb Followup: kb - With: Emergency Department - When: As needed - Reason: Worsening of condition Followup: kb - With: Private Physician - When: 2 - 3 days - Reason: Recheck today's complaints, Continuance of care, Re-evaluation by your physician Discharge Instructions: - Discharge Summary Sheet kb - Epiploic Appendagitis kb Forms: - Medication Reconciliation Form kb - Antibiotic Education kb - Prescription Opioid Use kb - Patient Portal Instructions kb - Leadership Thank You Letter kb Prescriptions: - Augmentin 875-125 mg Oral Tablet - take 1 tablet ORAL route every 12 hours for 10 days; 20 tablet; Refills: 0, kb Product Selection Permitted - Tramadol 50 mg Oral Tablet - take 1 tablet ORAL route every 8 hours as needed; 12 tablet; Refills: 0, kb Product Selection Permitted Signatures: Dispatcher [employer] Indiana Buenrostro FNP-C FNP-Irineo Butler MD MD rn Calderon, Audri, RN RN aa5 HAIM PALMER RN RN dd2
--- NOTE | 2024-12-27 17:04 | ER ---
Nurse's Notes [facility] Name: Cecy Song Age: 54 yrs Sex: Male : 1970 Arrival Date: 12/27/2024 Time: 14:29 Bed 17 Private MD: Diagnosis: Epiploic appendagitis Presentation: 12/27 14:33 Coronavirus screen: At this time, the client does not indicate any symptoms associated aa5 with coronavirus-19. Ebola Screen: Patient denies travel to an Ebola-affected area in the 21 days before illness onset. Initial Sepsis Screen: Does the patient meet any 2 criteria? No. Patient's initial sepsis screen is negative. Does the patient have a suspected source of infection? No. Patient's initial sepsis screen is negative. Risk Assessment: Do you want to hurt yourself or someone else? Patient reports no desire to harm self or others. Onset of symptoms was December 2024. 14:33 Acuity: ABBEY 3 aa5 14:33 Method Of Arrival: Ambulatory aa5 14:33 Chief complaint: Patient states: pain to LUQ that began 3 days ago, pain is worse upon aa5 "taking a deep breath" and /or movement. Denies cough, congestion, denies N/V/D, denies known injury. Historical: - Allergies: 14:34 No Known Allergies; aa5 - Home Meds: 14:34 warfarin 5 mg Oral tab once daily [Active]; metoprolol tartrate 25 mg Oral tab once aa5 daily [Active]; aspirin 81 mg Oral tablet 1 tab daily [Active]; - PMHx: 14:34 Hypertensive disorder; aortic valve replacement; mitral valve replacement; aa5 - PSHx: 14:34 aortic and mitral valce replacement; aa5 - Immunization history:: Adult Immunizations unknown. - Infectious Disease History:: Denies. - Social history:: Smoking status: Patient denies any tobacco usage or history of. Screenin:06 [facility] ED Fall Risk Assessment (Adult) History of falling in the last 3 months, dd2 including since admission No falls in past 3 months (0 pts) Confusion or Disorientation No (0 pts) Intoxicated or Sedated No (0 pts) Impaired Gait No (0 pts) Mobility Assist Device Used No (0 pt) Altered Elimination No (0 pt) Score/Fall Risk Level 0 - 2 = Low Risk Oriented to surroundings, Maintained a safe environment, Educated pt \\T\\ family on fall prevention, incl call for assistance when getting out of bed, Assessed \\T\\ reinforced patient's understanding of fall precautions, Hourly rounding (assess needs \\T\\ fall precautionary measures) done. Abuse screen: Denies threats or abuse. Denies injuries from another. Nutritional screening: No deficits noted. Tuberculosis screening: No symptoms or risk factors identified. Assessment: 15:08 General: Appears in no apparent distress. uncomfortable, Behavior is calm, cooperative, dd2 appropriate for age. Pain: Complains of pain in left upper quadrant Pain does not radiate. Pain currently is 3 out of 10 on a pain scale. at worst was 7 out of 10 on a pain scale. Aggravated by increased activity, palpitation. Neuro: No deficits noted. Level of Consciousness is awake, alert, obeys commands, Oriented to person, place, time, situation, Appropriate for age. Cardiovascular: No deficits noted. Patient's skin is warm and dry. Respiratory: No deficits noted. Airway is patent Respiratory effort is even, unlabored, Respiratory pattern is regular, symmetrical. GI: Abdomen is flat, non-distended, Bowel sounds present X 4 quads. Abd is soft X 4 quads Abdomen is tender to palpation in left upper quadrant Reports lower abdominal pain, Patient currently denies nausea, vomiting. : No deficits noted. No signs and/or symptoms were reported regarding the genitourinary system. EENT: No deficits noted. No signs and/or symptoms were reported regarding the EENT system. Derm: No deficits noted. No signs and/or symptoms reported regarding the dermatologic system. Musculoskeletal: No deficits noted. No signs and/or symptoms reported regarding the musculoskeletal system. Circulation, motion, and sensation intact. Range of motion: intact in all extremities. Vital Signs: 14:33 BP 113 / 74; Pulse 61; Resp 18 S; Temp 97.9(O); Pulse Ox 99% on R/A; Weight 77.11 kg aa5 (R); Height 5 ft. 3 in. (R); 15:35 BP 127 / 53; Pulse 60; Resp 16; Pulse Ox 100% on R/A; dd2 16:30 BP 125 / 80; Pulse 59; Resp 16; Pulse Ox 99% on R/A; dd2 17:35 BP 127 / 75; Pulse 63; Resp 16; Pulse Ox 99% on R/A; dd2 14:33 Body Mass Index 30.11 (77.11 kg, 160.02 cm) aa5 [place] Coma Score: 15:06 Eye Response: spontaneous(4). Motor Response: obeys commands(6). Verbal Response: dd2 oriented(5). Total: 15. ED Course: 14:32 Patient arrived in ED. mr 14:34 [place] Boudreaux FNP-C is [facility]. kb 14:34 Irineo Hernández MD is Attending Physician. kb 14:34 Arm band placed on. aa5 14:36 Triage completed. aa5 14:41 HAIM PALMER, THEO is Primary Nurse. dd2 15:06 Patient has correct armband on for positive identification. Bed in low position. Call dd2 light in reach. Side rails up X 1. Provided Education on: labs, medications. Client placed on continuous cardiac and pulse oximetry monitoring. NIBP monitoring applied. Door closed. Noise minimized. Pillow given. Verbal reassurance given. 15:06 CMP Sent. dd2 15:06 Lipase Sent. dd2 15:06 No provider procedures requiring assistance completed. Initial lab(s) drawn, by wa, dd2 sent to lab. Inserted saline lock: 20 gauge in right antecubital area, using aseptic technique. Blood collected. Flushed with 10 mL NS. Patient maintains SpO2 saturation greater than 95% on room air. 16:15 CT Abd/Pelvis - IV Contrast Only In Process Unspecified. EDMS 17:35 IV discontinued, intact, bleeding controlled, No redness/swelling at site. Pressure dd2 dressing applied. Administered Medications: 15:05 Drug: TORadol - Ketorolac IVP 15 mg IVP once Route: IVP; Site: right antecubital; dd2 15:20 Follow up: Response: No adverse reaction dd2 15:05 Drug: NS 0.9% IV 1000 ml IV at 1 bolus Per protocol; to be given as a bolus over 60 dd2 minutes Route: IV; Rate: 1 bolus; Site: right antecubital; 16:10 Follow up: IV Status: Completed infusion dd2 17:34 Drug: Hydrocodone-Acetaminophen PO (7.5 mg-325 mg) 1 tabs PO once Route: PO; dd2 17:43 Follow up: Response: Medication administered at discharge. dd2 Medication: 15:06 VIS not applicable for this client. dd2 Outcome: 17:03 Discharge ordered by . faina 17:35 Discharged to home ambulatory, dd2 17:35 Condition: stable 17:35 Discharge instructions given to patient, Instructed on discharge instructions, follow up and referral plans. medication usage, Demonstrated understanding of instructions, follow-up care, medications, Prescriptions given X 2, 17:44 Patient left the ED. dd2 Signatures: Dispatcher [employer] EDMS [place] Boudreaux, TRIM MECHANIC-C TRIM MECHANIC-CkAdrianne Keller, Reg Reg mr FeiMarizol, RN RN aa5 HAIM PALMER RN RN dd2 Corrections: (The following items were deleted from the chart) 17:38 17:35 Discharge instructions given to patient, Instructed on discharge instructions, dd2 follow up and referral plans. medication usage, Demonstrated understanding of instructions, follow-up care, medications, Prescriptions given X 1, dd2
[2024-12-27] MEDS ORDERED: HYDROCODONE/APAP 7.5/325 MG TAB ONE (17:32)
[2024-12-27 17:51] VITALS: TEMP 97.9
[2024-12-27 17:53] VITALS: O2SAT 99
[2024-12-27 17:54] VITALS: BP 127/75
== END 2024-12-27 17:44 | disposition home or self-care (01) ==
LOC: ER 14:29
DX: K63.89 Other specified diseases of intestine (principal); I10 Essential (primary) hypertension; Z95.2 Presence of prosthetic heart valve; Z79.01 Long term (current) use of anticoagulants; Z79.82 Long term (current) use of aspirin
CPT/HCPCS: 96361; 85025; 36415; 83690; 80053; 74177; 96374; 99284; Q9967; J7030